=== PATIENT | male | born 1965 | race African-American/Black ===

== ENCOUNTER 2018-07-21 13:06 | Inpatient (IN) | payer MEDICAID ==
[~2018-07-21] VITALS: Ht 167.6 cm; Wt 79.8 kg
[~2018-07-21 13:06] MED LIST: HYDR-4009 PO; OXYC30TA89 PO
[2018-07-21] MEDS ORDERED: SODIUM CHLORIDE 0.9% 1,000 ML IV ONE (14:06)
[2018-07-21] MEDS ORDERED: NITROGLYCERIN OINT 1GM/INCH UDPKT TD ONE (14:15)
[2018-07-21 14:56] LABS: BASOPHILS % 0.1 % (0.0-2.0); HEMATOCRIT. 26.7 % (42.0-52.0); HEMOGLOBIN. 8.4 g/dL (14.0-18.0); LYMPHOCYTES % 11.8 % (20.0-50.0); MEAN CORPUSCULAR HEMOGLOBIN 25.5 pg (28.0-32.0); MEAN CORPUSCULAR VOLUME 80.6 fL (80.0-94.0); MEAN PLATELET VOLUME 7.2 fl (7.4-10.4); NEUTROPHILS % 83.1 % (40.0-76.0); PLATELET 560 x1000/uL (130-400); RED BLOOD CELL COUNT 3.32 mill/uL (4.7-6.1); RED CELL DISTRIBUTION WIDTH 19.6 % (11.6-14.6)
[2018-07-21 15:02] LABS: CHLORIDE 101 mEq/L (98-107)
[2018-07-21] MEDS ORDERED: KETOROLAC 30MG/ML VIAL IV ONE (15:30)
[2018-07-21] MEDS ORDERED: CLINDAMYCIN 600 MG in DEXTROSE 5% WATER 50 ML IV ONE (16:15)
[2018-07-21 21:00] VITALS: BP 93/50
[2018-07-21 21:27] VITALS: BP 93/50
[2018-07-21] MEDS ORDERED: IPRATROPIUM/ALBUTEROL 0.5-3(2.5)MG/3ML NEB HHN PRN (22:45)
[2018-07-22] VITALS: BP 94/51
[2018-07-22] MEDS: PIPERACILLIN/TAZ 3.375G PREMIX 50 ML IV SCH ×5 (01:58→23:52)
[2018-07-22] MEDS: VANCOMYCIN 1 G PREMIX 200 ML IV SCH ×3 (01:59→16:58)
[2018-07-22 02:36] LABS: CLARITY URINE CLOUDY (CLEAR); COLOR URINE YELLOW (YELLOW); KETONES URINE NEGATIVE (NEGATIVE); LEUKOCYTE ESTERASE URINE 3+ (NEGATIVE); NITRITE URINE NEGATIVE (NEGATIVE); OCCULT BLOOD URINE NEGATIVE (NEGATIVE); PH URINE 7.5 (4.5-8.0); PROTEIN URINE 1+ (NEGATIVE); SPECIFIC GRAVITY URINE 1.012 (1.005-1.030); UROBILINOGEN URINE 0.2 E.U./dL (0.2-1.0)
[2018-07-22 04:00] VITALS: BP 133/65
[2018-07-22] MEDS: OMEPRAZOLE 20MG CAPSULE EXTENDED RELEASE PO SCH (05:52)
[2018-07-22 06:38] LABS: BASOPHILS % 0.1 % (0.0-2.0); EOSINOPHILS % 0.1 % (0.0-5.0); HEMATOCRIT. 24.2 % (42.0-52.0); HEMOGLOBIN. 7.6 g/dL (14.0-18.0); LYMPHOCYTES % 13.3 % (20.0-50.0); MEAN CORPUSCULAR HEMOGLOBIN 25.3 pg (28.0-32.0); MEAN CORPUSCULAR VOLUME 80.1 fL (80.0-94.0); MEAN PLATELET VOLUME 7.2 fl (7.4-10.4); MONOCYTES % 4.1 % (2.0-8.0); NEUTROPHILS % 82.4 % (40.0-76.0); PLATELET 476 x1000/uL (130-400); RED BLOOD CELL COUNT 3.02 mill/uL (4.7-6.1); RED CELL DISTRIBUTION WIDTH 19.5 % (11.6-14.6)
[2018-07-22 07:04] LABS: CHLORIDE 100 mEq/L (98-107)
[2018-07-22 08:00] VITALS: BP 128/61
[2018-07-22] MEDS ORDERED: POTASSIUM CHLORIDE 20MEQ/PACKET PO NR (08:15)
[2018-07-22] MEDS: HYDROCODONE/ACETAMINOPHEN 10/325MG TABLET PO PRN ×2 (09:15→21:14)
[2018-07-22] MEDS ORDERED: LIDOCAINE HCL/EPINEPHRINE 1%-EPI 1:100,000 20 ML VIAL INFIL NR (09:44)
[2018-07-22 11:37] LABS: *BARBITURATES SCREEN URINE NEGATIVE (NEGATIVE); *BENZODIAZEPINES SCREEN URINE NEGATIVE (NEGATIVE); *COCAINE SCREEN URINE NEGATIVE (NEGATIVE); METHADONE URINE SCREEN NEGATIVE (NEGATIVE); OPIATES URINE SCREEN NEGATIVE (NEGATIVE)
[2018-07-22 11:38] LABS: PHENCYCLIDINE URINE SCREEN PRESUMTIVE POSITIVE (NEGATIVE)
[2018-07-22 11:39] LABS: *AMPHETAMINES SCREEN URINE NEGATIVE (NEGATIVE); CANNABINOID URINE SCREEN NEGATIVE (NEGATIVE)
[2018-07-22] MEDS: SODIUM HYPOCHLORITE 0.125% 473ML SOLUTION TOP SCH ×3 (12:30→19:35)
[2018-07-22] MEDS ORDERED: LIDOCAINE HCL 1% 20ML VIAL (Pyxis) INJ ONE (13:00)
[2018-07-22] MEDS ORDERED: IPRATROPIUM/ALBUTEROL 0.5-3(2.5)MG/3ML NEB HHN PRN (14:00)
[2018-07-22 15:06] LABS: TOTAL IRON BINDING CAPACITY 85 ug/dL (250-450)
[2018-07-22] MEDS: NICOTINE 7MG PATCH TD SCH (15:37)
[2018-07-22 16:00] VITALS: BP 120/60
[2018-07-22 20:00] VITALS: BP 122/47
[2018-07-22 21:59] LABS: FOLIC ACID (FOLATE) SERUM 19.8 ng/mL (>5.38)
[2018-07-22 23:58] VITALS: BP 94/43
[2018-07-23] VITALS (10 sets, daily range): BP systolic 91–141; BP diastolic 42–59
[2018-07-23] MEDS: VANCOMYCIN 1 G PREMIX 200 ML IV SCH ×2 (03:08→14:21)
[2018-07-23] MEDS: PIPERACILLIN/TAZ 3.375G PREMIX 50 ML IV SCH ×2 (06:21→12:17)
[2018-07-23] MEDS: OMEPRAZOLE 20MG CAPSULE EXTENDED RELEASE PO SCH (06:21)
[2018-07-23] MEDS: SODIUM HYPOCHLORITE 0.125% 473ML SOLUTION TOP SCH ×3 (08:52→19:35)
[2018-07-23] MEDS: NICOTINE 7MG PATCH TD SCH (08:52)
[2018-07-23 12:11] LABS: BASOPHILS % 0.5 % (0.0-2.0); EOSINOPHILS % 0.1 % (0.0-5.0); MEAN CORPUSCULAR HEMOGLOBIN 25.7 pg (28.0-32.0); MEAN CORPUSCULAR VOLUME 81.1 fL (80.0-94.0); MEAN PLATELET VOLUME 7.5 fl (7.4-10.4); MONOCYTES % 4.4 % (2.0-8.0); PLATELET 411 x1000/uL (130-400); RED BLOOD CELL COUNT 2.55 mill/uL (4.7-6.1)
[2018-07-23 12:18] LABS: CHLORIDE 104 mEq/L (98-107)
[2018-07-23 12:24] LABS: PHOSPHORUS 2.5 mg/dL (2.5-4.9)
[2018-07-23 12:34] LABS: HEMATOCRIT. 20.7 % (42.0-52.0); HEMOGLOBIN. 6.6 g/dL (14.0-18.0)
[2018-07-23] MEDS: HYDROCODONE/ACETAMINOPHEN 10/325MG TABLET PO PRN ×2 (14:32→21:01)
[2018-07-23] MEDS: ZINC SULFATE 220 MG ( 50 ) CAPSULE PO SCH (15:26)
[2018-07-23] MEDS: MULTIVITAMINS,THER W-MINERALS TABLET PO SCH (15:26)
[2018-07-23] MEDS ORDERED: POTASSIUM CHLORIDE 20MEQ TABLET SR PO NR (16:30)
[2018-07-23] MEDS: ASCORBIC ACID 250 MG TABLET PO SCH (21:34)
[2018-07-23] MEDS: MEROPENEM 1,000 MG in SODIUM CHLORIDE 0.9% 100 ML IV SCH (23:45)
[2018-07-24] VITALS (12 sets, daily range): BP systolic 97–122; BP diastolic 44–66
[2018-07-24] MEDS: VANCOMYCIN 1 G PREMIX 200 ML IV SCH ×3 (01:12→16:01)
[2018-07-24 03:43] LABS: HEMATOCRIT 25.1 % (42.0-52.0); HEMOGLOBIN 8.3 g/dL (14.0-18.0)
[2018-07-24 04:01] LABS: INR 1.1; PROTHROMBIN TIME 10.8 sec (9.1-11.1)
[2018-07-24] MEDS: MEROPENEM 1,000 MG in SODIUM CHLORIDE 0.9% 100 ML IV SCH ×3 (05:43→21:29)
[2018-07-24 06:16] LABS: BASOPHILS % 0.3 % (0.0-2.0); EOSINOPHILS % 0.5 % (0.0-5.0); HEMATOCRIT. 25.2 % (42.0-52.0); HEMOGLOBIN. 8.2 g/dL (14.0-18.0); LYMPHOCYTES % 21.1 % (20.0-50.0); MEAN CORPUSCULAR HEMOGLOBIN 26.3 pg (28.0-32.0); MEAN CORPUSCULAR VOLUME 80.9 fL (80.0-94.0); MEAN PLATELET VOLUME 7.6 fl (7.4-10.4); MONOCYTES % 3.8 % (2.0-8.0); NEUTROPHILS % 74.3 % (40.0-76.0); PLATELET 466 x1000/uL (130-400); RED BLOOD CELL COUNT 3.11 mill/uL (4.7-6.1); RED CELL DISTRIBUTION WIDTH 18.1 % (11.6-14.6)
[2018-07-24 06:17] LABS: CHLORIDE 106 mEq/L (98-107)
[2018-07-24 06:25] LABS: VANCOMYCIN TROUGH 39.7 ug/mL (5.0-10.0)
[2018-07-24] MEDS: OMEPRAZOLE 20MG CAPSULE EXTENDED RELEASE PO SCH (06:42)
[2018-07-24 07:30] LABS: C REACTIVE PROTEIN QUANT > 190.0 mg/L (0.0-3.0)
[2018-07-24] MEDS: SODIUM HYPOCHLORITE 0.125% 473ML SOLUTION TOP SCH ×3 (09:00→17:51)
[2018-07-24] MEDS: ZINC SULFATE 220 MG ( 50 ) CAPSULE PO SCH (09:14)
[2018-07-24] MEDS: MULTIVITAMINS,THER W-MINERALS TABLET PO SCH (09:14)
[2018-07-24] MEDS: ASCORBIC ACID 250 MG TABLET PO SCH ×2 (09:14→20:41)
[2018-07-24] MEDS: NICOTINE 7MG PATCH TD SCH (09:15)
[2018-07-24] MEDS: HYDROCODONE/ACETAMINOPHEN 10/325MG TABLET PO PRN ×2 (09:17→17:48)
[2018-07-24] MEDS ORDERED: SODIUM BICARBONATE 4% (2.4MEQ) 5ML VIAL IV ONE (13:32)
[2018-07-24] MEDS ORDERED: LIDOCAINE HCL 1% 20ML VIAL (Pyxis) INJ ONE (13:32)
[2018-07-24] MEDS ORDERED: IOHEXOL-300 50 ML BOTTLE IV ONE (13:32)
[2018-07-24] MEDS ORDERED: IOHEXOL-300 100 ML BOTTLE ONE (13:33)
[2018-07-24] MEDS: METOPROLOL TARTRATE 25MG TABLET PO SCH ×2 (15:15→20:42)
[2018-07-24 22:22] LABS: HEMATOCRIT 22.6 % (42.0-52.0); HEMOGLOBIN 7.3 g/dL (14.0-18.0)
[2018-07-25] VITALS: BP 118/50
[2018-07-25 04:00] VITALS: BP 106/72
[2018-07-25] MEDS: VANCOMYCIN 1250MG in DEXTROSE 5% WATER 250ML IV SCH ×2 (05:25→05:26)
[2018-07-25 06:37] LABS: BASOPHILS % 0.2 % (0.0-2.0); EOSINOPHILS % 0.7 % (0.0-5.0); HEMATOCRIT. 24.1 % (42.0-52.0); HEMOGLOBIN. 7.8 g/dL (14.0-18.0); LYMPHOCYTES % 13.9 % (20.0-50.0); MEAN CORPUSCULAR HEMOGLOBIN 26.2 pg (28.0-32.0); MEAN CORPUSCULAR VOLUME 80.8 fL (80.0-94.0); MEAN PLATELET VOLUME 7.3 fl (7.4-10.4); MONOCYTES % 3.5 % (2.0-8.0); NEUTROPHILS % 81.7 % (40.0-76.0); PLATELET 483 x1000/uL (130-400); RED BLOOD CELL COUNT 2.99 mill/uL (4.7-6.1); RED CELL DISTRIBUTION WIDTH 18.8 % (11.6-14.6)
[2018-07-25] MEDS: OMEPRAZOLE 20MG CAPSULE EXTENDED RELEASE PO SCH (06:46)
[2018-07-25 06:47] LABS: CHLORIDE 102 mEq/L (98-107)
[2018-07-25] MEDS: MEROPENEM 1,000 MG in SODIUM CHLORIDE 0.9% 100 ML IV SCH (06:59)
[2018-07-25 08:00] VITALS: BP 107/61
[2018-07-25] MEDS: METOPROLOL TARTRATE 25MG TABLET PO SCH ×2 (08:35→21:00)
[2018-07-25] MEDS: MULTIVITAMINS,THER W-MINERALS TABLET PO SCH (08:36)
[2018-07-25] MEDS: ZINC SULFATE 220 MG ( 50 ) CAPSULE PO SCH (08:36)
[2018-07-25] MEDS: SODIUM HYPOCHLORITE 0.125% 473ML SOLUTION TOP SCH ×3 (08:36→15:19)
[2018-07-25] MEDS: ASCORBIC ACID 250 MG TABLET PO SCH ×2 (08:36→21:26)
[2018-07-25] MEDS: NICOTINE 7MG PATCH TD SCH (08:40)
[2018-07-25 12:00] VITALS: BP 127/66
[2018-07-25] MEDS ORDERED: MAGNESIUM 2 G PREMIX 50 ML IV ONE (12:45)
[2018-07-25] MEDS ORDERED: MAGNESIUM SULFATE 2 GM in DEXTROSE 5% WATER 46 ML IV SCH (13:30)
[2018-07-25] MEDS: CEFTRIAXONE 2 G in DEXTROSE 5% WATER 50 ML IV SCH (15:43)
[2018-07-25] MEDS: METRONIDAZOLE 500MG TABLET PO SCH ×2 (15:43→21:26)
[2018-07-25] MEDS: HYDROCODONE/ACETAMINOPHEN 10/325MG TABLET PO PRN (15:49)
[2018-07-25 16:00] VITALS: BP 106/60
[2018-07-25 20:00] VITALS: BP 95/57
[2018-07-26] VITALS: BP 130/52
[2018-07-26 04:00] VITALS: BP 104/50
[2018-07-26] MEDS: HYDROCODONE/ACETAMINOPHEN 10/325MG TABLET PO PRN (04:59)
[2018-07-26 07:10] LABS: BASOPHILS % 0.4 % (0.0-2.0); EOSINOPHILS % 1.3 % (0.0-5.0); HEMATOCRIT. 23.6 % (42.0-52.0); HEMOGLOBIN. 7.7 g/dL (14.0-18.0); LYMPHOCYTES % 18.2 % (20.0-50.0); MEAN CORPUSCULAR HEMOGLOBIN 26.7 pg (28.0-32.0); MEAN CORPUSCULAR VOLUME 82.1 fL (80.0-94.0); MEAN PLATELET VOLUME 7.4 fl (7.4-10.4); MONOCYTES % 4.6 % (2.0-8.0); NEUTROPHILS % 75.5 % (40.0-76.0); PLATELET 495 x1000/uL (130-400); RED BLOOD CELL COUNT 2.87 mill/uL (4.7-6.1); RED CELL DISTRIBUTION WIDTH 18.7 % (11.6-14.6)
[2018-07-26 07:41] LABS: CHLORIDE 105 mEq/L (98-107)
[2018-07-26 08:00] VITALS: BP 110/48
[2018-07-26] MEDS: NICOTINE 7MG PATCH TD SCH ×2 (09:00→09:29)
[2018-07-26] MEDS: METOPROLOL TARTRATE 25MG TABLET PO SCH ×2 (09:21→21:39)
[2018-07-26] MEDS: METRONIDAZOLE 500MG TABLET PO SCH ×2 (09:21→21:39)
[2018-07-26] MEDS: ZINC SULFATE 220 MG ( 50 ) CAPSULE PO SCH (09:22)
[2018-07-26] MEDS: ASCORBIC ACID 250 MG TABLET PO SCH ×2 (09:22→21:40)
[2018-07-26] MEDS: CEFTRIAXONE 2 G in DEXTROSE 5% WATER 50 ML IV SCH (09:26)
[2018-07-26] MEDS: MULTIVITAMINS,THER W-MINERALS TABLET PO SCH (09:26)
[2018-07-26] MEDS: FAMOTIDINE 20MG TABLET PO SCH ×2 (09:26→17:36)
[2018-07-26 12:00] VITALS: BP 132/60
[2018-07-26 16:00] VITALS: BP 152/67
[2018-07-26] MEDS: SODIUM HYPOCHLORITE 0.125% 473ML SOLUTION TOP SCH (17:37)
[2018-07-26 20:00] VITALS: BP 133/62
[2018-07-27] VITALS: BP 167/80
[2018-07-27 04:00] VITALS: BP 146/61
[2018-07-27 06:20] LABS: BASOPHILS % 0.4 % (0.0-2.0); EOSINOPHILS % 0.8 % (0.0-5.0); HEMATOCRIT. 24.2 % (42.0-52.0); HEMOGLOBIN. 7.6 g/dL (14.0-18.0); LYMPHOCYTES % 21.5 % (20.0-50.0); MEAN CORPUSCULAR HEMOGLOBIN 25.9 pg (28.0-32.0); MEAN CORPUSCULAR VOLUME 82.2 fL (80.0-94.0); MEAN PLATELET VOLUME 7.7 fl (7.4-10.4); MONOCYTES % 5.6 % (2.0-8.0); NEUTROPHILS % 71.7 % (40.0-76.0); PLATELET 554 x1000/uL (130-400); RED BLOOD CELL COUNT 2.94 mill/uL (4.7-6.1)
[2018-07-27 07:18] LABS: CHLORIDE 104 mEq/L (98-107)
[2018-07-27 08:00] VITALS: BP 117/61
[2018-07-27] MEDS: MULTIVITAMINS,THER W-MINERALS TABLET PO SCH (09:00)
[2018-07-27] MEDS: ASCORBIC ACID 250 MG TABLET PO SCH ×2 (09:00→20:53)
[2018-07-27] MEDS: NICOTINE 7MG PATCH TD SCH (09:00)
[2018-07-27] MEDS: CEFTRIAXONE 2 G in DEXTROSE 5% WATER 50 ML IV SCH (09:00)
[2018-07-27] MEDS: ZINC SULFATE 220 MG ( 50 ) CAPSULE PO SCH (09:00)
[2018-07-27] MEDS: FAMOTIDINE 20MG TABLET PO SCH ×2 (09:00→17:49)
[2018-07-27] MEDS: METRONIDAZOLE 500MG TABLET PO SCH ×2 (09:00→20:52)
[2018-07-27] MEDS: METOPROLOL TARTRATE 25MG TABLET PO SCH ×2 (09:02→20:53)
[2018-07-27 12:00] VITALS: BP 111/56
[2018-07-27 16:00] VITALS: BP 128/52
[2018-07-27 20:00] VITALS: BP 115/66
[2018-07-28] VITALS: BP 126/48
[2018-07-28 04:00] VITALS: BP 148/71
[2018-07-28 08:00] VITALS: BP 126/58
[2018-07-28] MEDS: SODIUM HYPOCHLORITE 0.125% 473ML SOLUTION TOP SCH ×2 (09:00→16:07)
[2018-07-28] MEDS: NICOTINE 7MG PATCH TD SCH ×2 (09:00→10:05)
[2018-07-28] MEDS: MULTIVITAMINS,THER W-MINERALS TABLET PO SCH (10:05)
[2018-07-28] MEDS: ZINC SULFATE 220 MG ( 50 ) CAPSULE PO SCH (10:05)
[2018-07-28] MEDS: METRONIDAZOLE 500MG TABLET PO SCH ×2 (10:05→20:49)
[2018-07-28] MEDS: CEFTRIAXONE 2 G in DEXTROSE 5% WATER 50 ML IV SCH (10:05)
[2018-07-28] MEDS: ASCORBIC ACID 250 MG TABLET PO SCH ×2 (10:05→20:49)
[2018-07-28] MEDS: FAMOTIDINE 20MG TABLET PO SCH ×2 (10:05→18:15)
[2018-07-28] MEDS: METOPROLOL TARTRATE 25MG TABLET PO SCH ×2 (11:25→20:49)
[2018-07-28 12:00] VITALS: BP 110/50
[2018-07-28 16:00] VITALS: BP 118/57
[2018-07-28 20:00] VITALS: BP 110/53
[2018-07-28] MEDS: ACETAMINOPHEN 650MG/20.3ML UDC PO PRN (20:50)
[2018-07-29] VITALS (8 sets, daily range): BP systolic 97–121; BP diastolic 46–62
[2018-07-29 07:01] LABS: BASOPHILS % 0.5 % (0.0-2.0); EOSINOPHILS % 0.9 % (0.0-5.0); HEMATOCRIT. 22.7 % (42.0-52.0); HEMOGLOBIN. 7.2 g/dL (14.0-18.0); LYMPHOCYTES % 16.8 % (20.0-50.0); MEAN CORPUSCULAR HEMOGLOBIN 26.1 pg (28.0-32.0); MEAN CORPUSCULAR VOLUME 81.7 fL (80.0-94.0); MEAN PLATELET VOLUME 7.5 fl (7.4-10.4); MONOCYTES % 5.4 % (2.0-8.0); NEUTROPHILS % 76.4 % (40.0-76.0); PLATELET 566 x1000/uL (130-400); RED BLOOD CELL COUNT 2.78 mill/uL (4.7-6.1); RED CELL DISTRIBUTION WIDTH 19.2 % (11.6-14.6)
[2018-07-29] MEDS: METOPROLOL TARTRATE 25MG TABLET PO SCH ×2 (09:00→21:00)
[2018-07-29 09:08] LABS: CHLORIDE 106 mEq/L (98-107)
[2018-07-29] MEDS: FAMOTIDINE 20MG TABLET PO SCH ×2 (09:41→17:13)
[2018-07-29] MEDS: ZINC SULFATE 220 MG ( 50 ) CAPSULE PO SCH (09:41)
[2018-07-29] MEDS: ASCORBIC ACID 250 MG TABLET PO SCH ×2 (09:41→21:15)
[2018-07-29] MEDS: CEFTRIAXONE 2 G in DEXTROSE 5% WATER 50 ML IV SCH (09:41)
[2018-07-29] MEDS: MULTIVITAMINS,THER W-MINERALS TABLET PO SCH (09:41)
[2018-07-29] MEDS: METRONIDAZOLE 500MG TABLET PO SCH ×2 (09:41→21:15)
[2018-07-29] MEDS: NICOTINE 7MG PATCH TD SCH (09:42)
[2018-07-29] MEDS: SODIUM HYPOCHLORITE 0.125% 473ML SOLUTION TOP SCH (09:43)
[2018-07-29 23:33] LABS: HEMATOCRIT 26.8 % (42.0-52.0); HEMOGLOBIN 8.6 g/dL (14.0-18.0)
[2018-07-29 23:59] LABS: INR 1.2
[2018-07-30] VITALS: BP 153/73
[2018-07-30] MEDS: ACETAMINOPHEN 650MG/20.3ML UDC PO PRN ×3 (00:11→21:03)
[2018-07-30 04:00] VITALS: BP 112/52
[2018-07-30 06:48] LABS: HEMATOCRIT. 23.7 % (42.0-52.0); HEMOGLOBIN. 7.7 g/dL (14.0-18.0); MEAN CORPUSCULAR HEMOGLOBIN 26.8 pg (28.0-32.0); MEAN CORPUSCULAR VOLUME 82.6 fL (80.0-94.0); PLATELET 538 x1000/uL (130-400); RED BLOOD CELL COUNT 2.86 mill/uL (4.7-6.1); RED CELL DISTRIBUTION WIDTH 18.5 % (11.6-14.6)
[2018-07-30 08:00] VITALS: BP 94/38
[2018-07-30] MEDS: METOPROLOL TARTRATE 25MG TABLET PO SCH ×2 (09:00→20:43)
[2018-07-30] MEDS: NICOTINE 7MG PATCH TD SCH (09:00)
[2018-07-30] MEDS: ZINC SULFATE 220 MG ( 50 ) CAPSULE PO SCH (09:15)
[2018-07-30] MEDS: ASCORBIC ACID 250 MG TABLET PO SCH ×2 (09:15→20:42)
[2018-07-30] MEDS: FAMOTIDINE 20MG TABLET PO SCH ×2 (09:16→16:41)
[2018-07-30] MEDS: MULTIVITAMINS,THER W-MINERALS TABLET PO SCH (09:16)
[2018-07-30] MEDS: SODIUM HYPOCHLORITE 0.125% 473ML SOLUTION TOP SCH (09:17)
[2018-07-30] MEDS: CEFTRIAXONE 2 G in DEXTROSE 5% WATER 50 ML IV SCH (09:18)
[2018-07-30] MEDS: METRONIDAZOLE 500MG TABLET PO SCH ×2 (09:31→20:43)
[2018-07-30 09:53] LABS: CHLORIDE 106 mEq/L (98-107)
[2018-07-30 12:00] VITALS: BP 104/68
[2018-07-30 14:05] LABS: PLATELET ESTIMATE INCREASED
[2018-07-30] MEDS ORDERED: SODIUM CHLORIDE 0.9% 250 ML IV ONE (14:30)
[2018-07-30] MEDS ORDERED: MAGNESIUM 2 G PREMIX 50 ML IV ONE (14:30)
[2018-07-30 16:00] VITALS: BP 95/43
[2018-07-30] MEDS ORDERED: MAGNESIUM SULFATE 2 GM in DEXTROSE 5% WATER 50 ML IV NR (16:00)
[2018-07-30 20:00] VITALS: BP 93/44
[2018-07-31] VITALS: BP 113/63
[2018-07-31 04:00] VITALS: BP 116/70
[2018-07-31 07:00] LABS: BASOPHILS % 0.3 % (0.0-2.0); EOSINOPHILS % 0.9 % (0.0-5.0); HEMATOCRIT. 28.1 % (42.0-52.0); HEMOGLOBIN. 9.1 g/dL (14.0-18.0); LYMPHOCYTES % 19.8 % (20.0-50.0); MEAN CORPUSCULAR VOLUME 83.3 fL (80.0-94.0); MEAN PLATELET VOLUME 7.7 fl (7.4-10.4); MONOCYTES % 7.2 % (2.0-8.0); NEUTROPHILS % 71.8 % (40.0-76.0); PLATELET 705 x1000/uL (130-400); RED BLOOD CELL COUNT 3.38 mill/uL (4.7-6.1); RED CELL DISTRIBUTION WIDTH 19.2 % (11.6-14.6)
[2018-07-31 07:59] LABS: CHLORIDE 104 mEq/L (98-107)
[2018-07-31 08:00] VITALS: BP 110/39
[2018-07-31] MEDS: NICOTINE 7MG PATCH TD SCH (09:00)
[2018-07-31] MEDS: FAMOTIDINE 20MG TABLET PO SCH ×2 (09:16→17:06)
[2018-07-31] MEDS: ZINC SULFATE 220 MG ( 50 ) CAPSULE PO SCH (09:16)
[2018-07-31] MEDS: METRONIDAZOLE 500MG TABLET PO SCH ×2 (09:16→22:02)
[2018-07-31] MEDS: CEFTRIAXONE 2 G in DEXTROSE 5% WATER 50 ML IV SCH (09:16)
[2018-07-31] MEDS: ASCORBIC ACID 250 MG TABLET PO SCH ×2 (09:16→22:02)
[2018-07-31] MEDS: MULTIVITAMINS,THER W-MINERALS TABLET PO SCH (09:16)
[2018-07-31] MEDS: METOPROLOL TARTRATE 25MG TABLET PO SCH ×2 (09:16→22:03)
[2018-07-31] MEDS: SODIUM HYPOCHLORITE 0.125% 473ML SOLUTION TOP SCH (09:17)
[2018-07-31 12:00] VITALS: BP 114/58
[2018-07-31 16:00] VITALS: BP 140/53
[2018-07-31 20:00] VITALS: BP 123/71
[2018-08-01 04:00] VITALS: BP 106/59
[2018-08-01 06:10] LABS: BASOPHILS % 0.7 % (0.0-2.0); EOSINOPHILS % 0.8 % (0.0-5.0); HEMATOCRIT. 24.3 % (42.0-52.0); HEMOGLOBIN. 7.7 g/dL (14.0-18.0); MEAN CORPUSCULAR HEMOGLOBIN 26.5 pg (28.0-32.0); MONOCYTES % 5.4 % (2.0-8.0); NEUTROPHILS % 71.1 % (40.0-76.0); PLATELET 708 x1000/uL (130-400); RED BLOOD CELL COUNT 2.92 mill/uL (4.7-6.1)
[2018-08-01 06:50] LABS: CHLORIDE 104 mEq/L (98-107)
[2018-08-01 08:00] VITALS: BP_SYST 114; BP_SYST 122; BP_DIAS 53; BP_DIAS 78
[2018-08-01] MEDS: NICOTINE 7MG PATCH TD SCH (09:00)
[2018-08-01] MEDS ORDERED: CEFTRIAXONE 2 G in DEXTROSE 5% WATER 50 ML IV SCH (09:00)
[2018-08-01] MEDS: SODIUM HYPOCHLORITE 0.125% 473ML SOLUTION TOP SCH (09:00)
[2018-08-01] MEDS: ASCORBIC ACID 250 MG TABLET PO SCH ×2 (09:40→21:34)
[2018-08-01] MEDS: METRONIDAZOLE 500MG TABLET PO SCH ×2 (09:41→21:34)
[2018-08-01] MEDS: FAMOTIDINE 20MG TABLET PO SCH ×2 (09:41→17:21)
[2018-08-01] MEDS: ZINC SULFATE 220 MG ( 50 ) CAPSULE PO SCH (09:41)
[2018-08-01] MEDS: MULTIVITAMINS,THER W-MINERALS TABLET PO SCH (09:42)
[2018-08-01] MEDS ORDERED: LIDOCAINE HCL 1% 20ML VIAL (Pyxis) INJ INFIL SCH (09:45)
[2018-08-01] MEDS: METOPROLOL TARTRATE 25MG TABLET PO SCH ×2 (09:46→21:00)
[2018-08-01 12:13] VITALS: BP 118/53
[2018-08-01 16:00] VITALS: BP 96/40
[2018-08-01] MEDS: ACETAMINOPHEN 650MG/20.3ML UDC PO PRN (17:21)
[2018-08-01 20:00] VITALS: BP 97/46
[2018-08-01] MEDS ORDERED: ERTA1VIA3 IJ (20:37)
[2018-08-02] VITALS (10 sets, daily range): BP systolic 94–155; BP diastolic 46–88
[2018-08-02 05:59] LABS: BASOPHILS % 0.6 % (0.0-2.0); EOSINOPHILS % 0.9 % (0.0-5.0); HEMATOCRIT. 21.9 % (42.0-52.0); HEMOGLOBIN. 7.2 g/dL (14.0-18.0); LYMPHOCYTES % 21.1 % (20.0-50.0); MEAN CORPUSCULAR HEMOGLOBIN 27.4 pg (28.0-32.0); MEAN CORPUSCULAR VOLUME 83.2 fL (80.0-94.0); MEAN PLATELET VOLUME 7.3 fl (7.4-10.4); MONOCYTES % 5.5 % (2.0-8.0); NEUTROPHILS % 71.9 % (40.0-76.0); PLATELET 783 x1000/uL (130-400); RED BLOOD CELL COUNT 2.63 mill/uL (4.7-6.1); RED CELL DISTRIBUTION WIDTH 19.4 % (11.6-14.6)
[2018-08-02 06:49] LABS: CHLORIDE 106 mEq/L (98-107)
[2018-08-02] MEDS: NICOTINE 7MG PATCH TD SCH ×2 (09:00→09:35)
[2018-08-02] MEDS: METOPROLOL TARTRATE 25MG TABLET PO SCH ×2 (09:00→21:38)
[2018-08-02] MEDS: ASCORBIC ACID 250 MG TABLET PO SCH ×2 (09:35→21:37)
[2018-08-02] MEDS: METRONIDAZOLE 500MG TABLET PO SCH ×2 (09:35→21:37)
[2018-08-02] MEDS: ZINC SULFATE 220 MG ( 50 ) CAPSULE PO SCH (09:35)
[2018-08-02] MEDS: MULTIVITAMINS,THER W-MINERALS TABLET PO SCH (09:35)
[2018-08-02] MEDS: FAMOTIDINE 20MG TABLET PO SCH ×2 (09:35→17:56)
[2018-08-02] MEDS: SODIUM HYPOCHLORITE 0.125% 473ML SOLUTION TOP SCH (09:36)
[2018-08-02] MEDS: CEFTRIAXONE 2 G in DEXTROSE 5% WATER 50 ML IV SCH (13:47)
[2018-08-02 23:42] LABS: BASOPHILS % 0.4 % (0.0-2.0); EOSINOPHILS % 1.3 % (0.0-5.0); HEMATOCRIT. 27.1 % (42.0-52.0); HEMOGLOBIN. 8.7 g/dL (14.0-18.0); LYMPHOCYTES % 27.5 % (20.0-50.0); MEAN CORPUSCULAR HEMOGLOBIN 27.2 pg (28.0-32.0); MEAN CORPUSCULAR VOLUME 84.3 fL (80.0-94.0); MEAN PLATELET VOLUME 6.7 fl (7.4-10.4); MONOCYTES % 6.5 % (2.0-8.0); NEUTROPHILS % 64.3 % (40.0-76.0); PLATELET 837 x1000/uL (130-400); RED BLOOD CELL COUNT 3.21 mill/uL (4.7-6.1); RED CELL DISTRIBUTION WIDTH 19.4 % (11.6-14.6)
[2018-08-03] VITALS: BP 102/50
[2018-08-03 04:00] VITALS: BP 110/56
[2018-08-03 07:24] LABS: BASOPHILS % 0.6 % (0.0-2.0); EOSINOPHILS % 0.6 % (0.0-5.0); HEMATOCRIT. 25.2 % (42.0-52.0); HEMOGLOBIN. 8.4 g/dL (14.0-18.0); MEAN CORPUSCULAR HEMOGLOBIN 28.1 pg (28.0-32.0); MEAN CORPUSCULAR VOLUME 84.6 fL (80.0-94.0); MEAN PLATELET VOLUME 7.3 fl (7.4-10.4); MONOCYTES % 6.5 % (2.0-8.0); NEUTROPHILS % 71.3 % (40.0-76.0); PLATELET 849 x1000/uL (130-400); RED BLOOD CELL COUNT 2.98 mill/uL (4.7-6.1); RED CELL DISTRIBUTION WIDTH 19.5 % (11.6-14.6)
[2018-08-03 08:00] VITALS: BP 116/57
[2018-08-03 08:02] LABS: CHLORIDE 104 mEq/L (98-107)
[2018-08-03] MEDS: NICOTINE 7MG PATCH TD SCH (09:00)
[2018-08-03] MEDS: ASCORBIC ACID 250 MG TABLET PO SCH ×2 (09:51→21:52)
[2018-08-03] MEDS: METRONIDAZOLE 500MG TABLET PO SCH ×2 (09:51→21:52)
[2018-08-03] MEDS: MULTIVITAMINS,THER W-MINERALS TABLET PO SCH (09:51)
[2018-08-03] MEDS: FAMOTIDINE 20MG TABLET PO SCH ×2 (09:51→17:05)
[2018-08-03] MEDS: ZINC SULFATE 220 MG ( 50 ) CAPSULE PO SCH (09:51)
[2018-08-03] MEDS: METOPROLOL TARTRATE 25MG TABLET PO SCH ×2 (09:52→21:53)
[2018-08-03] MEDS: SODIUM HYPOCHLORITE 0.125% 473ML SOLUTION TOP SCH (09:54)
[2018-08-03 12:00] VITALS: BP 99/52
[2018-08-03] MEDS: CEFTRIAXONE 2 G in DEXTROSE 5% WATER 50 ML IV SCH (12:32)
[2018-08-03 16:00] VITALS: BP 108/54
[2018-08-03 20:00] VITALS: BP 121/55
[2018-08-04] VITALS (7 sets, daily range): BP systolic 96–119; BP diastolic 51–58
[2018-08-04] MEDS: METOPROLOL TARTRATE 25MG TABLET PO SCH ×2 (09:00→21:05)
[2018-08-04] MEDS: NICOTINE 7MG PATCH TD SCH (09:00)
[2018-08-04] MEDS: FAMOTIDINE 20MG TABLET PO SCH ×2 (09:59→16:50)
[2018-08-04] MEDS: ASCORBIC ACID 250 MG TABLET PO SCH ×2 (09:59→21:05)
[2018-08-04] MEDS: METRONIDAZOLE 500MG TABLET PO SCH ×2 (09:59→21:05)
[2018-08-04] MEDS: ZINC SULFATE 220 MG ( 50 ) CAPSULE PO SCH (09:59)
[2018-08-04] MEDS: MULTIVITAMINS,THER W-MINERALS TABLET PO SCH (09:59)
[2018-08-04] MEDS: SODIUM HYPOCHLORITE 0.125% 473ML SOLUTION TOP SCH (10:01)
[2018-08-04] MEDS: CEFTRIAXONE 2 G in DEXTROSE 5% WATER 50 ML IV SCH (12:46)
[2018-08-04 22:03] LABS: CHLORIDE 106 mEq/L (98-107)
[2018-08-04 22:07] LABS: BASOPHILS % 0.4 % (0.0-2.0); EOSINOPHILS % 1.2 % (0.0-5.0); HEMATOCRIT. 26.5 % (42.0-52.0); HEMOGLOBIN. 8.8 g/dL (14.0-18.0); LYMPHOCYTES % 25.7 % (20.0-50.0); MEAN CORPUSCULAR HEMOGLOBIN 28.2 pg (28.0-32.0); MEAN CORPUSCULAR VOLUME 84.8 fL (80.0-94.0); MONOCYTES % 6.3 % (2.0-8.0); NEUTROPHILS % 66.4 % (40.0-76.0); RED BLOOD CELL COUNT 3.12 mill/uL (4.7-6.1); RED CELL DISTRIBUTION WIDTH 19.5 % (11.6-14.6)
[2018-08-04 22:13] LABS: PLATELET 1029 x1000/uL (130-400)
[2018-08-05 04:00] VITALS: BP 118/68
[2018-08-05 06:33] LABS: BASOPHILS % 0.6 % (0.0-2.0); EOSINOPHILS % 0.7 % (0.0-5.0); HEMATOCRIT. 28.5 % (42.0-52.0); HEMOGLOBIN. 9.4 g/dL (14.0-18.0); LYMPHOCYTES % 20.1 % (20.0-50.0); MEAN CORPUSCULAR HEMOGLOBIN 28.3 pg (28.0-32.0); MEAN CORPUSCULAR VOLUME 85.5 fL (80.0-94.0); MEAN PLATELET VOLUME 7.3 fl (7.4-10.4); MONOCYTES % 7.6 % (2.0-8.0); RED BLOOD CELL COUNT 3.34 mill/uL (4.7-6.1); RED CELL DISTRIBUTION WIDTH 19.8 % (11.6-14.6)
[2018-08-05 06:56] LABS: PLATELET 1040 x1000/uL (130-400)
[2018-08-05 07:13] LABS: CHLORIDE 104 mEq/L (98-107)
[2018-08-05 08:00] VITALS: BP 107/53
[2018-08-05] MEDS: NICOTINE 7MG PATCH TD SCH (10:27)
[2018-08-05] MEDS: METRONIDAZOLE 500MG TABLET PO SCH ×2 (10:27→21:08)
[2018-08-05] MEDS: ZINC SULFATE 220 MG ( 50 ) CAPSULE PO SCH (10:28)
[2018-08-05] MEDS: ASCORBIC ACID 250 MG TABLET PO SCH ×2 (10:28→21:08)
[2018-08-05] MEDS: FAMOTIDINE 20MG TABLET PO SCH ×2 (10:28→17:12)
[2018-08-05] MEDS: METOPROLOL TARTRATE 25MG TABLET PO SCH ×2 (10:28→21:00)
[2018-08-05] MEDS: MULTIVITAMINS,THER W-MINERALS TABLET PO SCH (10:28)
[2018-08-05 12:00] VITALS: BP 107/53
[2018-08-05] MEDS: CEFTRIAXONE 2 G in DEXTROSE 5% WATER 50 ML IV SCH (14:43)
[2018-08-05 16:00] VITALS: BP 116/55
[2018-08-05 20:00] VITALS: BP 102/46
[2018-08-06] VITALS: BP 124/68
[2018-08-06 04:00] VITALS: BP 111/58
[2018-08-06] MEDS: ACETAMINOPHEN 650MG/20.3ML UDC PO PRN ×2 (04:32→20:13)
[2018-08-06 08:00] VITALS: BP 133/63
[2018-08-06] MEDS: NICOTINE 7MG PATCH TD SCH (09:00)
[2018-08-06] MEDS: MULTIVITAMINS,THER W-MINERALS TABLET PO SCH (09:11)
[2018-08-06] MEDS: METRONIDAZOLE 500MG TABLET PO SCH ×2 (09:11→20:33)
[2018-08-06] MEDS: ZINC SULFATE 220 MG ( 50 ) CAPSULE PO SCH (09:11)
[2018-08-06] MEDS: FAMOTIDINE 20MG TABLET PO SCH ×2 (09:12→17:47)
[2018-08-06] MEDS: ASCORBIC ACID 250 MG TABLET PO SCH ×2 (09:12→20:33)
[2018-08-06] MEDS: METOPROLOL TARTRATE 25MG TABLET PO SCH ×2 (09:12→20:33)
[2018-08-06 12:00] VITALS: BP 113/61
[2018-08-06] MEDS: CEFTRIAXONE 2 G in DEXTROSE 5% WATER 50 ML IV SCH (12:18)
[2018-08-06] MEDS: ASPIRIN 81MG TABLET PO SCH (12:19)
[2018-08-06 14:53] LABS: PLATELET ESTIMATE MARKEDLY INCREASED
[2018-08-06 16:00] VITALS: BP 113/62
[2018-08-06] MEDS: SODIUM HYPOCHLORITE 0.125% 473ML SOLUTION TOP SCH (17:48)
[2018-08-06 20:00] VITALS: BP 138/66
[2018-08-07 04:00] VITALS: BP 103/60
[2018-08-07 08:00] VITALS: BP 130/74
[2018-08-07] MEDS: FAMOTIDINE 20MG TABLET PO SCH ×2 (08:51→16:58)
[2018-08-07] MEDS: ZINC SULFATE 220 MG ( 50 ) CAPSULE PO SCH (08:51)
[2018-08-07] MEDS: ASPIRIN 81MG TABLET PO SCH (08:51)
[2018-08-07] MEDS: ASCORBIC ACID 250 MG TABLET PO SCH ×2 (08:51→20:36)
[2018-08-07] MEDS: MULTIVITAMINS,THER W-MINERALS TABLET PO SCH (08:51)
[2018-08-07] MEDS: NICOTINE 7MG PATCH TD SCH (08:52)
[2018-08-07] MEDS: ACETAMINOPHEN 650MG/20.3ML UDC PO PRN (08:52)
[2018-08-07] MEDS: METOPROLOL TARTRATE 25MG TABLET PO SCH ×2 (09:01→20:37)
[2018-08-07 12:00] VITALS: BP 98/66
[2018-08-07] MEDS: CEFTRIAXONE 2 G in DEXTROSE 5% WATER 50 ML IV SCH (12:42)
[2018-08-07] MEDS: METRONIDAZOLE 500MG TABLET PO SCH ×2 (12:42→20:36)
[2018-08-07 16:00] VITALS: BP 95/64
[2018-08-07] MEDS ORDERED: LACTULOSE 20G/30ML UDC PO NR (16:00)
[2018-08-07] MEDS: SODIUM HYPOCHLORITE 0.125% 473ML SOLUTION TOP SCH (17:09)
[2018-08-07 20:00] VITALS: BP 121/58
[2018-08-08] VITALS: BP 101/64
[2018-08-08 03:56] VITALS: BP 135/74
[2018-08-08 08:00] VITALS: BP 113/70
[2018-08-08] MEDS: NICOTINE 7MG PATCH TD SCH (09:00)
[2018-08-08] MEDS: METRONIDAZOLE 500MG TABLET PO SCH ×2 (09:30→21:56)
[2018-08-08] MEDS: ASPIRIN 81MG TABLET PO SCH (09:30)
[2018-08-08] MEDS: FAMOTIDINE 20MG TABLET PO SCH ×2 (09:30→17:09)
[2018-08-08] MEDS: ASCORBIC ACID 250 MG TABLET PO SCH ×2 (09:30→21:56)
[2018-08-08] MEDS: ZINC SULFATE 220 MG ( 50 ) CAPSULE PO SCH (09:30)
[2018-08-08] MEDS: MULTIVITAMINS,THER W-MINERALS TABLET PO SCH (09:30)
[2018-08-08] MEDS: METOPROLOL TARTRATE 25MG TABLET PO SCH ×2 (09:30→21:00)
[2018-08-08 12:00] VITALS: BP 105/65
[2018-08-08] MEDS: CEFTRIAXONE 2 G in DEXTROSE 5% WATER 50 ML IV SCH (12:40)
[2018-08-08 16:00] VITALS: BP 108/64
[2018-08-08] MEDS: SODIUM HYPOCHLORITE 0.125% 473ML SOLUTION TOP SCH (17:09)
[2018-08-08 22:30] VITALS: BP 116/57
[2018-08-09] VITALS: BP 113/57
[2018-08-09 04:00] VITALS: BP 116/60
[2018-08-09 06:43] LABS: BASOPHILS % 0.6 % (0.0-2.0); EOSINOPHILS % 2.1 % (0.0-5.0); HEMOGLOBIN. 7.6 g/dL (14.0-18.0); MEAN CORPUSCULAR HEMOGLOBIN 28.3 pg (28.0-32.0); MEAN CORPUSCULAR VOLUME 85.4 fL (80.0-94.0); MEAN PLATELET VOLUME 6.8 fl (7.4-10.4); MONOCYTES % 8.8 % (2.0-8.0); NEUTROPHILS % 50.5 % (40.0-76.0); PLATELET 820 x1000/uL (130-400); RED CELL DISTRIBUTION WIDTH 20.2 % (11.6-14.6)
[2018-08-09 07:10] LABS: CHLORIDE 107 mEq/L (98-107)
[2018-08-09 08:00] VITALS: BP 116/60
[2018-08-09] MEDS: MULTIVITAMINS,THER W-MINERALS TABLET PO SCH (09:20)
[2018-08-09] MEDS: ZINC SULFATE 220 MG ( 50 ) CAPSULE PO SCH (09:20)
[2018-08-09] MEDS: NICOTINE 7MG PATCH TD SCH (09:20)
[2018-08-09] MEDS: ASCORBIC ACID 250 MG TABLET PO SCH ×2 (09:20→21:49)
[2018-08-09] MEDS: METOPROLOL TARTRATE 25MG TABLET PO SCH (09:21)
[2018-08-09] MEDS: FAMOTIDINE 20MG TABLET PO SCH ×2 (09:21→19:03)
[2018-08-09] MEDS: METRONIDAZOLE 500MG TABLET PO SCH ×2 (09:21→21:49)
[2018-08-09] MEDS: ASPIRIN 81MG TABLET PO SCH (09:24)
[2018-08-09] MEDS: CEFTRIAXONE 2 G in DEXTROSE 5% WATER 50 ML IV SCH (11:30)
[2018-08-09] MEDS: SODIUM HYPOCHLORITE 0.125% 473ML SOLUTION TOP SCH (11:31)
[2018-08-09 12:00] VITALS: BP 101/52
[2018-08-09 17:11] VITALS: BP 105/55
[2018-08-09] MEDS: DOCUSATE SODIUM 100MG CAPSULE PO SCH (19:03)
[2018-08-09 20:00] VITALS: BP 118/65
[2018-08-10] VITALS: BP 146/63
[2018-08-10 04:00] VITALS: BP 115/63
[2018-08-10 06:37] LABS: BASOPHILS % 0.8 % (0.0-2.0); EOSINOPHILS % 1.2 % (0.0-5.0); HEMATOCRIT. 22.8 % (42.0-52.0); HEMOGLOBIN. 7.7 g/dL (14.0-18.0); LYMPHOCYTES % 21.1 % (20.0-50.0); MEAN CORPUSCULAR HEMOGLOBIN 28.9 pg (28.0-32.0); MEAN CORPUSCULAR VOLUME 85.7 fL (80.0-94.0); MEAN PLATELET VOLUME 6.9 fl (7.4-10.4); MONOCYTES % 10.5 % (2.0-8.0); NEUTROPHILS % 66.4 % (40.0-76.0); PLATELET 789 x1000/uL (130-400); RED BLOOD CELL COUNT 2.66 mill/uL (4.7-6.1); RED CELL DISTRIBUTION WIDTH 20.5 % (11.6-14.6)
[2018-08-10 08:00] VITALS: BP 127/60
[2018-08-10 08:11] LABS: CHLORIDE 107 mEq/L (98-107)
[2018-08-10] MEDS: METRONIDAZOLE 500MG TABLET PO SCH ×2 (08:49→21:29)
[2018-08-10] MEDS: DOCUSATE SODIUM 100MG CAPSULE PO SCH ×2 (08:49→17:01)
[2018-08-10] MEDS: ZINC SULFATE 220 MG ( 50 ) CAPSULE PO SCH (08:50)
[2018-08-10] MEDS: ASCORBIC ACID 250 MG TABLET PO SCH ×2 (08:50→21:28)
[2018-08-10] MEDS: FAMOTIDINE 20MG TABLET PO SCH ×2 (08:50→17:01)
[2018-08-10] MEDS: NICOTINE 7MG PATCH TD SCH (08:50)
[2018-08-10] MEDS: MULTIVITAMINS,THER W-MINERALS TABLET PO SCH (08:50)
[2018-08-10] MEDS: CEFTRIAXONE 2 G in DEXTROSE 5% WATER 50 ML IV SCH (10:56)
[2018-08-10 12:00] VITALS: BP 120/57
[2018-08-10 16:00] VITALS: BP 117/79
[2018-08-10] MEDS: SODIUM HYPOCHLORITE 0.125% 473ML SOLUTION TOP SCH (17:01)
[2018-08-10 20:00] VITALS: BP 117/63
[2018-08-11] VITALS: BP 116/66
[2018-08-11 04:00] VITALS: BP 119/60
[2018-08-11 08:00] VITALS: BP 96/54
[2018-08-11] MEDS: NICOTINE 7MG PATCH TD SCH (09:00)
[2018-08-11] MEDS: ZINC SULFATE 220 MG ( 50 ) CAPSULE PO SCH (09:07)
[2018-08-11] MEDS: DOCUSATE SODIUM 100MG CAPSULE PO SCH ×2 (09:07→19:15)
[2018-08-11] MEDS: METRONIDAZOLE 500MG TABLET PO SCH ×2 (09:07→20:52)
[2018-08-11] MEDS: MULTIVITAMINS,THER W-MINERALS TABLET PO SCH (09:07)
[2018-08-11] MEDS: FAMOTIDINE 20MG TABLET PO SCH ×2 (09:07→19:15)
[2018-08-11] MEDS: ASCORBIC ACID 250 MG TABLET PO SCH ×2 (09:07→20:52)
[2018-08-11] MEDS: SODIUM HYPOCHLORITE 0.125% 473ML SOLUTION TOP SCH (09:08)
[2018-08-11 09:22] LABS: BASOPHILS % 0.7 % (0.0-2.0); EOSINOPHILS % 1.9 % (0.0-5.0); HEMATOCRIT. 23.2 % (42.0-52.0); HEMOGLOBIN. 7.8 g/dL (14.0-18.0); LYMPHOCYTES % 24.2 % (20.0-50.0); MEAN CORPUSCULAR HEMOGLOBIN 28.7 pg (28.0-32.0); MEAN CORPUSCULAR VOLUME 85.7 fL (80.0-94.0); MONOCYTES % 5.8 % (2.0-8.0); NEUTROPHILS % 67.4 % (40.0-76.0); PLATELET 852 x1000/uL (130-400); RED BLOOD CELL COUNT 2.71 mill/uL (4.7-6.1); RED CELL DISTRIBUTION WIDTH 20.6 % (11.6-14.6)
[2018-08-11 10:29] LABS: CHLORIDE 105 mEq/L (98-107)
[2018-08-11] MEDS: CEFTRIAXONE 2 G in DEXTROSE 5% WATER 50 ML IV SCH (11:19)
[2018-08-11 12:00] VITALS: BP 118/59
[2018-08-11 16:00] VITALS: BP 115/66
[2018-08-11 20:00] VITALS: BP 126/64
[2018-08-12] VITALS: BP 118/63
[2018-08-12 07:31] LABS: HEMATOCRIT 25.4 % (42.0-52.0); HEMOGLOBIN 8.5 g/dL (14.0-18.0); MEAN CORPUSCULAR HEMOGLOBIN 28.9 pg (28.0-32.0); MEAN CORPUSCULAR VOLUME 86.4 fL (80.0-94.0); PLATELET 779 x1000/uL (130-400); RED BLOOD CELL COUNT 2.94 mill/uL (4.7-6.1); RED CELL DISTRIBUTION WIDTH 20.6 % (11.6-14.6)
[2018-08-12 08:00] VITALS: BP 89/44
[2018-08-12] MEDS: NICOTINE 7MG PATCH TD SCH (09:00)
[2018-08-12] MEDS: METRONIDAZOLE 500MG TABLET PO SCH ×2 (09:35→20:50)
[2018-08-12] MEDS: ZINC SULFATE 220 MG ( 50 ) CAPSULE PO SCH (09:35)
[2018-08-12] MEDS: ASCORBIC ACID 250 MG TABLET PO SCH ×2 (09:35→20:50)
[2018-08-12] MEDS: MULTIVITAMINS,THER W-MINERALS TABLET PO SCH (09:35)
[2018-08-12] MEDS: FAMOTIDINE 20MG TABLET PO SCH ×2 (09:35→18:24)
[2018-08-12] MEDS: DOCUSATE SODIUM 100MG CAPSULE PO SCH ×2 (09:35→18:24)
[2018-08-12] MEDS: SODIUM HYPOCHLORITE 0.125% 473ML SOLUTION TOP SCH (09:36)
[2018-08-12] MEDS: SODIUM CHLORIDE 0.9% 500 ML IV NR ×3 (11:37→12:35)
[2018-08-12] MEDS: CEFTRIAXONE 2 G in DEXTROSE 5% WATER 50 ML IV SCH (11:37)
[2018-08-12 12:00] VITALS: BP 99/50
[2018-08-12 16:00] VITALS: BP 107/51
[2018-08-12 20:00] VITALS: BP 124/62
[2018-08-12] MEDS: ACETAMINOPHEN 650MG/20.3ML UDC PO PRN (20:50)
[2018-08-13] VITALS: BP 105/54
[2018-08-13 04:00] VITALS: BP 135/59
[2018-08-13 06:48] LABS: CHLORIDE 111 mEq/L (98-107)
[2018-08-13 07:16] LABS: HEMOGLOBIN 8.2 g/dL (14.0-18.0); MEAN CORPUSCULAR HEMOGLOBIN 28.5 pg (28.0-32.0); MEAN CORPUSCULAR VOLUME 86.9 fL (80.0-94.0); PLATELET 615 x1000/uL (130-400); RED BLOOD CELL COUNT 2.88 mill/uL (4.7-6.1); RED CELL DISTRIBUTION WIDTH 20.6 % (11.6-14.6)
[2018-08-13 08:00] VITALS: BP 113/55
[2018-08-13] MEDS: NICOTINE 7MG PATCH TD SCH (09:00)
[2018-08-13] MEDS: ZINC SULFATE 220 MG ( 50 ) CAPSULE PO SCH (09:28)
[2018-08-13] MEDS: DOCUSATE SODIUM 100MG CAPSULE PO SCH ×2 (09:28→18:32)
[2018-08-13] MEDS: FAMOTIDINE 20MG TABLET PO SCH ×2 (09:28→18:32)
[2018-08-13] MEDS: METRONIDAZOLE 500MG TABLET PO SCH ×2 (09:28→21:59)
[2018-08-13] MEDS: ASCORBIC ACID 250 MG TABLET PO SCH ×2 (09:28→21:59)
[2018-08-13] MEDS: MULTIVITAMINS,THER W-MINERALS TABLET PO SCH (09:28)
[2018-08-13] MEDS: SODIUM HYPOCHLORITE 0.125% 473ML SOLUTION TOP SCH (09:29)
[2018-08-13] MEDS: CEFTRIAXONE 2 G in DEXTROSE 5% WATER 50 ML IV SCH (11:28)
[2018-08-13 12:00] VITALS: BP 96/39
[2018-08-13] MEDS ORDERED: SODIUM CHLORIDE 0.9% 500 ML IV ONE (14:45)
[2018-08-13 16:00] VITALS: BP 117/62
[2018-08-13 20:00] VITALS: BP 112/50
[2018-08-14] VITALS (9 sets, daily range): BP systolic 102–120; BP diastolic 47–68
[2018-08-14 06:08] LABS: MEAN CORPUSCULAR HEMOGLOBIN 29.2 pg (28.0-32.0); MEAN CORPUSCULAR VOLUME 87.1 fL (80.0-94.0); PLATELET 574 x1000/uL (130-400); RED BLOOD CELL COUNT 2.42 mill/uL (4.7-6.1); RED CELL DISTRIBUTION WIDTH 20.8 % (11.6-14.6)
[2018-08-14] MEDS: ZINC SULFATE 220 MG ( 50 ) CAPSULE PO SCH (08:22)
[2018-08-14] MEDS: DOCUSATE SODIUM 100MG CAPSULE PO SCH ×2 (08:22→16:00)
[2018-08-14] MEDS: METRONIDAZOLE 500MG TABLET PO SCH ×2 (08:22→21:03)
[2018-08-14] MEDS: FAMOTIDINE 20MG TABLET PO SCH ×2 (08:22→16:01)
[2018-08-14] MEDS: MULTIVITAMINS,THER W-MINERALS TABLET PO SCH (08:23)
[2018-08-14] MEDS: NICOTINE 7MG PATCH TD SCH (08:23)
[2018-08-14] MEDS: ASCORBIC ACID 250 MG TABLET PO SCH ×2 (08:23→21:03)
[2018-08-14] MEDS: CEFTRIAXONE 2 G in DEXTROSE 5% WATER 50 ML IV SCH (10:18)
[2018-08-14] MEDS: SODIUM HYPOCHLORITE 0.125% 473ML SOLUTION TOP SCH (16:00)
[2018-08-14 21:39] LABS: HEMOGLOBIN 8.4 g/dL (14.0-18.0)
[2018-08-15 04:00] VITALS: BP 94/53
[2018-08-15] MEDS: DOCUSATE SODIUM 100MG CAPSULE PO SCH ×2 (08:28→17:56)
[2018-08-15] MEDS: MULTIVITAMINS,THER W-MINERALS TABLET PO SCH (08:29)
[2018-08-15] MEDS: FAMOTIDINE 20MG TABLET PO SCH ×2 (08:29→17:56)
[2018-08-15] MEDS: ZINC SULFATE 220 MG ( 50 ) CAPSULE PO SCH (08:29)
[2018-08-15] MEDS: ASCORBIC ACID 250 MG TABLET PO SCH ×2 (08:29→21:17)
[2018-08-15] MEDS: NICOTINE 7MG PATCH TD SCH (08:29)
[2018-08-15] MEDS: METRONIDAZOLE 500MG TABLET PO SCH ×2 (08:29→21:17)
[2018-08-15 08:30] VITALS: BP 97/48
[2018-08-15 12:00] VITALS: BP 100/58
[2018-08-15 14:55] LABS: HEMATOCRIT 23.6 % (42.0-52.0); HEMOGLOBIN 7.9 g/dL (14.0-18.0); MEAN CORPUSCULAR HEMOGLOBIN 29.2 pg (28.0-32.0); MEAN CORPUSCULAR VOLUME 87.4 fL (80.0-94.0); PLATELET 530 x1000/uL (130-400); RED CELL DISTRIBUTION WIDTH 20.7 % (11.6-14.6)
[2018-08-15 15:11] LABS: CHLORIDE 108 mEq/L (98-107)
[2018-08-15] MEDS: CEFTRIAXONE 2 G in DEXTROSE 5% WATER 50 ML IV SCH (15:17)
[2018-08-15 16:30] VITALS: BP 121/60
[2018-08-15 20:00] VITALS: BP 104/57
[2018-08-16] VITALS: BP 99/53
[2018-08-16 04:00] VITALS: BP 94/54
[2018-08-16 07:01] LABS: HEMATOCRIT 22.3 % (42.0-52.0); HEMOGLOBIN 7.6 g/dL (14.0-18.0); MEAN CORPUSCULAR HEMOGLOBIN 29.9 pg (28.0-32.0); MEAN CORPUSCULAR VOLUME 87.8 fL (80.0-94.0); PLATELET 425 x1000/uL (130-400); RED BLOOD CELL COUNT 2.54 mill/uL (4.7-6.1); RED CELL DISTRIBUTION WIDTH 20.5 % (11.6-14.6)
[2018-08-16 08:00] VITALS: BP 120/70
[2018-08-16] MEDS: NICOTINE 7MG PATCH TD SCH (09:00)
[2018-08-16] MEDS: ZINC SULFATE 220 MG ( 50 ) CAPSULE PO SCH (09:22)
[2018-08-16] MEDS: MULTIVITAMINS,THER W-MINERALS TABLET PO SCH (09:22)
[2018-08-16] MEDS: DOCUSATE SODIUM 100MG CAPSULE PO SCH ×2 (09:22→17:04)
[2018-08-16] MEDS: ASCORBIC ACID 250 MG TABLET PO SCH ×2 (09:22→22:16)
[2018-08-16] MEDS: FAMOTIDINE 20MG TABLET PO SCH ×2 (09:22→17:04)
[2018-08-16] MEDS: METRONIDAZOLE 500MG TABLET PO SCH ×2 (09:22→22:16)
[2018-08-16] MEDS: CEFTRIAXONE 2 G in DEXTROSE 5% WATER 50 ML IV SCH (10:34)
[2018-08-16 12:00] VITALS: BP 96/49
[2018-08-16 16:00] VITALS: BP 108/56
[2018-08-16 20:00] VITALS: BP 111/53
[2018-08-17] VITALS: BP 109/55
[2018-08-17] MEDS: ACETAMINOPHEN 650MG/20.3ML UDC PO PRN (00:40)
[2018-08-17 04:00] VITALS: BP 101/53
[2018-08-17 08:00] VITALS: BP_SYST 110; BP_SYST 111; BP_DIAS 60
[2018-08-17] MEDS: NICOTINE 7MG PATCH TD SCH (08:20)
[2018-08-17 08:39] LABS: BASOPHILS % 0.3 % (0.0-2.0); EOSINOPHILS % 1.7 % (0.0-5.0); HEMATOCRIT. 24.7 % (42.0-52.0); HEMOGLOBIN. 8.1 g/dL (14.0-18.0); LYMPHOCYTES % 15.3 % (20.0-50.0); MEAN CORPUSCULAR HEMOGLOBIN 29.2 pg (28.0-32.0); MEAN CORPUSCULAR VOLUME 88.5 fL (80.0-94.0); MEAN PLATELET VOLUME 6.4 fl (7.4-10.4); MONOCYTES % 7.9 % (2.0-8.0); NEUTROPHILS % 74.8 % (40.0-76.0); PLATELET 500 x1000/uL (130-400); RED BLOOD CELL COUNT 2.79 mill/uL (4.7-6.1); RED CELL DISTRIBUTION WIDTH 20.7 % (11.6-14.6)
[2018-08-17 08:56] LABS: CHLORIDE 108 mEq/L (98-107)
[2018-08-17] MEDS: MULTIVITAMINS,THER W-MINERALS TABLET PO SCH (09:12)
[2018-08-17] MEDS: FAMOTIDINE 20MG TABLET PO SCH ×2 (09:12→17:35)
[2018-08-17] MEDS: DOCUSATE SODIUM 100MG CAPSULE PO SCH ×2 (09:12→17:35)
[2018-08-17] MEDS: CEFTRIAXONE 2 G in DEXTROSE 5% WATER 50 ML IV SCH (09:12)
[2018-08-17] MEDS: METRONIDAZOLE 500MG TABLET PO SCH ×2 (09:12→21:05)
[2018-08-17] MEDS: ASCORBIC ACID 250 MG TABLET PO SCH ×2 (09:12→21:05)
[2018-08-17] MEDS: ZINC SULFATE 220 MG ( 50 ) CAPSULE PO SCH (09:12)
[2018-08-17 12:00] VITALS: BP 108/60
[2018-08-17] MEDS: HYDROCODONE/ACETAMINOPHEN 5/325MG TABLET PO PRN (12:04)
[2018-08-17 16:00] VITALS: BP 104/52
[2018-08-17 20:00] VITALS: BP 105/56
[2018-08-18] VITALS: BP 101/52
[2018-08-18 03:55] VITALS: BP 93/44
[2018-08-18 08:00] VITALS: BP 106/50
[2018-08-18] MEDS: NICOTINE 7MG PATCH TD SCH ×2 (09:00→13:00)
[2018-08-18] MEDS: CEFTRIAXONE 2 G in DEXTROSE 5% WATER 50 ML IV SCH (09:41)
[2018-08-18] MEDS: METRONIDAZOLE 500MG TABLET PO SCH ×2 (09:41→22:51)
[2018-08-18] MEDS: ZINC SULFATE 220 MG ( 50 ) CAPSULE PO SCH (09:42)
[2018-08-18] MEDS: ASCORBIC ACID 250 MG TABLET PO SCH ×2 (09:42→22:51)
[2018-08-18] MEDS: FAMOTIDINE 20MG TABLET PO SCH ×2 (09:42→18:03)
[2018-08-18] MEDS: DOCUSATE SODIUM 100MG CAPSULE PO SCH ×2 (09:42→18:03)
[2018-08-18] MEDS: MULTIVITAMINS,THER W-MINERALS TABLET PO SCH (09:42)
[2018-08-18 11:57] VITALS: BP 92/61
[2018-08-18 12:47] LABS: HEMATOCRIT 25.5 % (42.0-52.0); HEMOGLOBIN 8.3 g/dL (14.0-18.0); MEAN CORPUSCULAR HEMOGLOBIN 28.8 pg (28.0-32.0); MEAN CORPUSCULAR VOLUME 87.9 fL (80.0-94.0); PLATELET 516 x1000/uL (130-400); RED CELL DISTRIBUTION WIDTH 20.5 % (11.6-14.6)
[2018-08-18] MEDS ORDERED: IPRATROPIUM/ALBUTEROL 0.5-3(2.5)MG/3ML NEB HHN PRN (14:00)
[2018-08-18 16:00] VITALS: BP 91/47
[2018-08-18] MEDS ORDERED: ACETAMINOPHEN 650MG/20.3ML UDC PO PRN (16:45)
[2018-08-18 20:00] VITALS: BP 102/52
[2018-08-19] VITALS: BP 98/52
[2018-08-19 04:00] VITALS: BP 95/55
[2018-08-19 08:00] VITALS: BP 98/51
[2018-08-19] MEDS: NICOTINE 7MG PATCH TD SCH (09:00)
[2018-08-19] MEDS: FAMOTIDINE 20MG TABLET PO SCH ×2 (09:15→17:04)
[2018-08-19] MEDS: CEFTRIAXONE 2 G in DEXTROSE 5% WATER 50 ML IV SCH (09:15)
[2018-08-19] MEDS: METRONIDAZOLE 500MG TABLET PO SCH ×2 (09:15→21:58)
[2018-08-19] MEDS: ASCORBIC ACID 250 MG TABLET PO SCH ×2 (09:15→21:58)
[2018-08-19] MEDS: MULTIVITAMINS,THER W-MINERALS TABLET PO SCH (09:15)
[2018-08-19] MEDS: ZINC SULFATE 220 MG ( 50 ) CAPSULE PO SCH (09:15)
[2018-08-19] MEDS: DOCUSATE SODIUM 100MG CAPSULE PO SCH ×2 (09:15→17:07)
[2018-08-19 10:18] LABS: BASOPHILS % 0.3 % (0.0-2.0); HEMATOCRIT. 24.9 % (42.0-52.0); HEMOGLOBIN. 8.2 g/dL (14.0-18.0); LYMPHOCYTES % 14.4 % (20.0-50.0); MEAN CORPUSCULAR HEMOGLOBIN 29.1 pg (28.0-32.0); MEAN CORPUSCULAR VOLUME 88.5 fL (80.0-94.0); MEAN PLATELET VOLUME 6.6 fl (7.4-10.4); MONOCYTES % 6.2 % (2.0-8.0); NEUTROPHILS % 78.1 % (40.0-76.0); PLATELET 490 x1000/uL (130-400); RED BLOOD CELL COUNT 2.81 mill/uL (4.7-6.1); RED CELL DISTRIBUTION WIDTH 20.4 % (11.6-14.6)
[2018-08-19 12:00] VITALS: BP 101/52
[2018-08-19 16:00] VITALS: BP 100/71
[2018-08-19 20:00] VITALS: BP 98/49
[2018-08-20] VITALS: BP 91/50
[2018-08-20 04:00] VITALS: BP 98/51
[2018-08-20 08:00] VITALS: BP 118/67
[2018-08-20] MEDS: NICOTINE 7MG PATCH TD SCH (09:00)
[2018-08-20] MEDS: ASCORBIC ACID 250 MG TABLET PO SCH (09:49)
[2018-08-20] MEDS: METRONIDAZOLE 500MG TABLET PO SCH ×2 (09:49→20:22)
[2018-08-20] MEDS: DOCUSATE SODIUM 100MG CAPSULE PO SCH ×2 (09:49→16:22)
[2018-08-20] MEDS: CEFTRIAXONE 2 G in DEXTROSE 5% WATER 50 ML IV SCH (09:49)
[2018-08-20] MEDS: FAMOTIDINE 20MG TABLET PO SCH ×2 (09:49→16:22)
[2018-08-20] MEDS: ZINC SULFATE 220 MG ( 50 ) CAPSULE PO SCH (09:49)
[2018-08-20] MEDS: MULTIVITAMINS,THER W-MINERALS TABLET PO SCH (09:49)
[2018-08-20 16:00] VITALS: BP 105/53
[2018-08-20] MEDS: HYDROCODONE/ACETAMINOPHEN 5/325MG TABLET PO PRN (16:24)
[2018-08-20] MEDS ORDERED: HYDROCODONE/ACETAMINOPHEN 5/325MG TABLET PO PRN (17:45)
[2018-08-20 20:00] VITALS: BP 103/51
[2018-08-20] MEDS ORDERED: ASCORBIC ACID 250 MG TABLET PO SCH (21:00)
[2018-08-21] VITALS: BP 106/51
[2018-08-21 04:00] VITALS: BP 114/60
[2018-08-21 08:00] VITALS: BP 104/54
[2018-08-21] MEDS: DOCUSATE SODIUM 100MG CAPSULE PO SCH ×2 (08:33→18:21)
[2018-08-21] MEDS: ZINC SULFATE 220 MG ( 50 ) CAPSULE PO SCH (08:33)
[2018-08-21] MEDS: FAMOTIDINE 20MG TABLET PO SCH ×2 (08:33→18:21)
[2018-08-21] MEDS: METRONIDAZOLE 500MG TABLET PO SCH ×2 (08:33→20:38)
[2018-08-21] MEDS: CEFTRIAXONE 2 G in DEXTROSE 5% WATER 50 ML IV SCH (08:33)
[2018-08-21] MEDS: MULTIVITAMINS,THER W-MINERALS TABLET PO SCH (08:33)
[2018-08-21] MEDS: NICOTINE 7MG PATCH TD SCH (08:34)
[2018-08-21 08:35] LABS: BASOPHILS % 0.3 % (0.0-2.0); EOSINOPHILS % 1.6 % (0.0-5.0); HEMATOCRIT. 23.5 % (42.0-52.0); LYMPHOCYTES % 15.5 % (20.0-50.0); MEAN CORPUSCULAR HEMOGLOBIN 30.1 pg (28.0-32.0); MEAN CORPUSCULAR VOLUME 88.7 fL (80.0-94.0); MEAN PLATELET VOLUME 6.9 fl (7.4-10.4); MONOCYTES % 7.2 % (2.0-8.0); NEUTROPHILS % 75.4 % (40.0-76.0); PLATELET 509 x1000/uL (130-400); RED BLOOD CELL COUNT 2.65 mill/uL (4.7-6.1); RED CELL DISTRIBUTION WIDTH 19.7 % (11.6-14.6)
[2018-08-21 09:35] LABS: CHLORIDE 102 mEq/L (98-107)
[2018-08-21] MEDS ORDERED: LIDOCAINE HCL/EPINEPHRINE 1%-EPI 1:100,000 30 ML VIAL INFIL NR (10:00)
[2018-08-21 12:00] VITALS: BP 107/57
[2018-08-21 16:00] VITALS: BP 105/56
[2018-08-21 20:00] VITALS: BP 103/47
[2018-08-22] VITALS: BP 93/39
[2018-08-22 04:00] VITALS: BP 105/53
[2018-08-22 07:42] LABS: HEMATOCRIT 23.3 % (42.0-52.0); MEAN CORPUSCULAR HEMOGLOBIN 30.5 pg (28.0-32.0); MEAN CORPUSCULAR VOLUME 88.5 fL (80.0-94.0); PLATELET 483 x1000/uL (130-400); RED BLOOD CELL COUNT 2.63 mill/uL (4.7-6.1); RED CELL DISTRIBUTION WIDTH 19.3 % (11.6-14.6)
[2018-08-22 08:00] VITALS: BP 95/54
[2018-08-22] MEDS: CEFTRIAXONE 2 G in DEXTROSE 5% WATER 50 ML IV SCH (08:48)
[2018-08-22] MEDS: MULTIVITAMINS,THER W-MINERALS TABLET PO SCH (08:49)
[2018-08-22] MEDS: FAMOTIDINE 20MG TABLET PO SCH ×2 (08:49→18:36)
[2018-08-22] MEDS: ZINC SULFATE 220 MG ( 50 ) CAPSULE PO SCH (08:49)
[2018-08-22] MEDS: NICOTINE 7MG PATCH TD SCH (08:49)
[2018-08-22] MEDS: DOCUSATE SODIUM 100MG CAPSULE PO SCH ×2 (08:49→18:36)
[2018-08-22] MEDS ORDERED: SODIUM CHLORIDE 0.9% 500 ML IV ONE (11:30)
[2018-08-22 12:00] VITALS: BP 100/59
[2018-08-22 16:00] VITALS: BP 101/45
[2018-08-22 20:00] VITALS: BP 111/68
[2018-08-22] MEDS: DIPHENHYDRAMINE 25MG CAPSULE PO PRN (20:09)
[2018-08-23] VITALS (7 sets, daily range): BP systolic 95–108; BP diastolic 48–61
[2018-08-23] MEDS: ACETAMINOPHEN 325MG TABLET PO PRN ×2 (01:11→21:09)
[2018-08-23] MEDS: DIPHENHYDRAMINE 25MG CAPSULE PO PRN ×2 (05:46→17:51)
[2018-08-23 08:02] LABS: BASOPHILS % 0.5 % (0.0-2.0); EOSINOPHILS % 2.1 % (0.0-5.0); HEMATOCRIT. 22.5 % (42.0-52.0); HEMOGLOBIN. 7.3 g/dL (14.0-18.0); LYMPHOCYTES % 18.4 % (20.0-50.0); MEAN CORPUSCULAR HEMOGLOBIN 29.2 pg (28.0-32.0); MEAN CORPUSCULAR VOLUME 89.6 fL (80.0-94.0); MEAN PLATELET VOLUME 7.5 fl (7.4-10.4); PLATELET 564 x1000/uL (130-400); RED BLOOD CELL COUNT 2.51 mill/uL (4.7-6.1); RED CELL DISTRIBUTION WIDTH 19.3 % (11.6-14.6)
[2018-08-23] MEDS: DOCUSATE SODIUM 100MG CAPSULE PO SCH ×2 (08:18→17:51)
[2018-08-23] MEDS: FAMOTIDINE 20MG TABLET PO SCH (08:18)
[2018-08-23] MEDS: ZINC SULFATE 220 MG ( 50 ) CAPSULE PO SCH (08:18)
[2018-08-23] MEDS: CEFTRIAXONE 2 G in DEXTROSE 5% WATER 50 ML IV SCH (08:23)
[2018-08-23] MEDS: MULTIVITAMINS,THER W-MINERALS TABLET PO SCH (08:24)
[2018-08-23] MEDS: NICOTINE 7MG PATCH TD SCH (08:24)
[2018-08-23] MEDS: METRONIDAZOLE 500MG TABLET PO SCH (21:08)
[2018-08-24] VITALS: BP 102/63
[2018-08-24 04:00] VITALS: BP 102/59
[2018-08-24] MEDS: MULTIVITAMINS,THER W-MINERALS TABLET PO SCH (08:22)
[2018-08-24] MEDS: CEFTRIAXONE 2 G in DEXTROSE 5% WATER 50 ML IV SCH (08:22)
[2018-08-24] MEDS: NICOTINE 7MG PATCH TD SCH (08:22)
[2018-08-24] MEDS: DOCUSATE SODIUM 100MG CAPSULE PO SCH ×2 (08:22→18:05)
[2018-08-24] MEDS: ZINC SULFATE 220 MG ( 50 ) CAPSULE PO SCH (08:22)
[2018-08-24] MEDS: METRONIDAZOLE 500MG TABLET PO SCH ×2 (08:22→21:10)
[2018-08-24 08:30] VITALS: BP 94/50
[2018-08-24 09:00] LABS: BASOPHILS % 0.5 % (0.0-2.0); EOSINOPHILS % 1.4 % (0.0-5.0); HEMATOCRIT. 21.9 % (42.0-52.0); HEMOGLOBIN. 7.4 g/dL (14.0-18.0); LYMPHOCYTES % 17.3 % (20.0-50.0); MEAN CORPUSCULAR VOLUME 89.3 fL (80.0-94.0); MEAN PLATELET VOLUME 7.4 fl (7.4-10.4); MONOCYTES % 7.2 % (2.0-8.0); NEUTROPHILS % 73.6 % (40.0-76.0); PLATELET 491 x1000/uL (130-400); RED BLOOD CELL COUNT 2.46 mill/uL (4.7-6.1); RED CELL DISTRIBUTION WIDTH 18.9 % (11.6-14.6)
[2018-08-24 09:07] LABS: CHLORIDE 101 mEq/L (98-107)
[2018-08-24 12:00] VITALS: BP 108/50
[2018-08-24 16:00] VITALS: BP 108/50
[2018-08-24] MEDS: DIPHENHYDRAMINE 25MG CAPSULE PO PRN (18:05)
[2018-08-24 20:00] VITALS: BP 93/41
[2018-08-25] VITALS: BP_SYST 152; BP_SYST 95; BP_DIAS 50; BP_DIAS 58
[2018-08-25 04:00] VITALS: BP 94/51
[2018-08-25 08:00] VITALS: BP 90/55
[2018-08-25] MEDS: CEFTRIAXONE 2 G in DEXTROSE 5% WATER 50 ML IV SCH (08:00)
[2018-08-25] MEDS: MULTIVITAMINS,THER W-MINERALS TABLET PO SCH (08:01)
[2018-08-25] MEDS: NICOTINE 7MG PATCH TD SCH (08:01)
[2018-08-25] MEDS: ZINC SULFATE 220 MG ( 50 ) CAPSULE PO SCH (08:01)
[2018-08-25] MEDS: METRONIDAZOLE 500MG TABLET PO SCH ×2 (08:01→20:43)
[2018-08-25] MEDS: DOCUSATE SODIUM 100MG CAPSULE PO SCH ×2 (08:01→16:44)
[2018-08-25 12:00] VITALS: BP 100/52
[2018-08-25] MEDS ORDERED: SODIUM CHLORIDE 0.9% 500 ML IV NR (12:30)
[2018-08-25 16:00] VITALS: BP 113/59
[2018-08-25 20:00] VITALS: BP 106/49
[2018-08-25] MEDS: DIPHENHYDRAMINE 25MG CAPSULE PO PRN (20:43)
[2018-08-26] VITALS: BP 101/45
[2018-08-26] MEDS: DIPHENHYDRAMINE 25MG CAPSULE PO PRN ×2 (02:55→21:42)
[2018-08-26 04:00] VITALS: BP 93/50
[2018-08-26 08:00] VITALS: BP 95/51
[2018-08-26] MEDS: CEFTRIAXONE 2 G in DEXTROSE 5% WATER 50 ML IV SCH (08:40)
[2018-08-26] MEDS: ZINC SULFATE 220 MG ( 50 ) CAPSULE PO SCH (08:40)
[2018-08-26] MEDS: DOCUSATE SODIUM 100MG CAPSULE PO SCH ×2 (08:40→16:20)
[2018-08-26] MEDS: METRONIDAZOLE 500MG TABLET PO SCH ×2 (08:40→21:42)
[2018-08-26] MEDS: MULTIVITAMINS,THER W-MINERALS TABLET PO SCH (08:40)
[2018-08-26] MEDS: NICOTINE 7MG PATCH TD SCH (08:41)
[2018-08-26 12:00] VITALS: BP 91/47
[2018-08-26 16:00] VITALS: BP 101/49
[2018-08-26] MEDS: ACETAMINOPHEN 325MG TABLET PO PRN (16:21)
[2018-08-26 20:00] VITALS: BP 100/56
[2018-08-26 21:21] LABS: HEMATOCRIT 23.2 % (42.0-52.0); HEMOGLOBIN 7.6 g/dL (14.0-18.0); MEAN CORPUSCULAR HEMOGLOBIN 29.5 pg (28.0-32.0); MEAN CORPUSCULAR VOLUME 90.1 fL (80.0-94.0); PLATELET 615 x1000/uL (130-400); RED BLOOD CELL COUNT 2.58 mill/uL (4.7-6.1); RED CELL DISTRIBUTION WIDTH 18.5 % (11.6-14.6)
[2018-08-26 21:28] LABS: CHLORIDE 99 mEq/L (98-107)
[2018-08-27] VITALS: BP 99/53
[2018-08-27 04:00] VITALS: BP 101/56
[2018-08-27] MEDS: DIPHENHYDRAMINE 25MG CAPSULE PO PRN ×2 (04:12→20:30)
[2018-08-27] MEDS: ACETAMINOPHEN 325MG TABLET PO PRN (04:12)
[2018-08-27] MEDS: NICOTINE 7MG PATCH TD SCH (09:00)
[2018-08-27] MEDS: METRONIDAZOLE 500MG TABLET PO SCH ×2 (09:23→20:30)
[2018-08-27] MEDS: DOCUSATE SODIUM 100MG CAPSULE PO SCH ×2 (09:23→17:36)
[2018-08-27] MEDS: CEFTRIAXONE 2 G in DEXTROSE 5% WATER 50 ML IV SCH (09:23)
[2018-08-27] MEDS: ZINC SULFATE 220 MG ( 50 ) CAPSULE PO SCH (09:23)
[2018-08-27] MEDS: MULTIVITAMINS,THER W-MINERALS TABLET PO SCH (09:23)
[2018-08-27] MEDS ORDERED: SODIUM CHLORIDE 0.9% 1,000 ML IV ONE (11:30)
[2018-08-27 16:00] VITALS: BP 91/45
[2018-08-27 20:00] VITALS: BP 98/49
[2018-08-28] VITALS: BP 97/52
[2018-08-28 04:00] VITALS: BP 106/55
[2018-08-28 07:32] LABS: HEMATOCRIT 21.7 % (42.0-52.0); HEMOGLOBIN 7.3 g/dL (14.0-18.0); MEAN CORPUSCULAR HEMOGLOBIN 29.9 pg (28.0-32.0); MEAN CORPUSCULAR VOLUME 89.3 fL (80.0-94.0); PLATELET 622 x1000/uL (130-400); RED BLOOD CELL COUNT 2.43 mill/uL (4.7-6.1); RED CELL DISTRIBUTION WIDTH 17.6 % (11.6-14.6)
[2018-08-28 08:56] VITALS: BP 102/54
[2018-08-28] MEDS: NICOTINE 7MG PATCH TD SCH (09:00)
[2018-08-28 12:00] VITALS: BP 102/51
[2018-08-28] MEDS: MULTIVITAMINS,THER W-MINERALS TABLET PO SCH (12:05)
[2018-08-28] MEDS: METRONIDAZOLE 500MG TABLET PO SCH ×2 (12:05→21:28)
[2018-08-28] MEDS: ZINC SULFATE 220 MG ( 50 ) CAPSULE PO SCH (12:05)
[2018-08-28] MEDS: DOCUSATE SODIUM 100MG CAPSULE PO SCH ×2 (12:07→19:07)
[2018-08-28] MEDS: CEFTRIAXONE 2 G in DEXTROSE 5% WATER 50 ML IV SCH (13:43)
[2018-08-28 16:00] VITALS: BP 98/55
[2018-08-28 20:00] VITALS: BP 121/64
[2018-08-28] MEDS: ACETAMINOPHEN 325MG TABLET PO PRN (21:29)
[2018-08-28] MEDS: DIPHENHYDRAMINE 25MG CAPSULE PO PRN (22:21)
[2018-08-29] VITALS: BP 101/54
[2018-08-29 04:00] VITALS: BP 94/54
[2018-08-29 08:06] LABS: HEMATOCRIT 22.8 % (42.0-52.0); HEMOGLOBIN 7.6 g/dL (14.0-18.0); MEAN CORPUSCULAR HEMOGLOBIN 30.1 pg (28.0-32.0); MEAN CORPUSCULAR VOLUME 90.1 fL (80.0-94.0); PLATELET 714 x1000/uL (130-400); RED BLOOD CELL COUNT 2.53 mill/uL (4.7-6.1); RED CELL DISTRIBUTION WIDTH 18.1 % (11.6-14.6)
[2018-08-29] MEDS: NICOTINE 7MG PATCH TD SCH (09:00)
[2018-08-29] MEDS: CEFTRIAXONE 2 G in DEXTROSE 5% WATER 50 ML IV SCH (10:34)
[2018-08-29] MEDS: ZINC SULFATE 220 MG ( 50 ) CAPSULE PO SCH (10:34)
[2018-08-29] MEDS: MULTIVITAMINS,THER W-MINERALS TABLET PO SCH (10:35)
[2018-08-29] MEDS: DOCUSATE SODIUM 100MG CAPSULE PO SCH ×2 (10:35→17:00)
[2018-08-29] MEDS: METRONIDAZOLE 500MG TABLET PO SCH ×2 (10:35→21:46)
[2018-08-29] MEDS: DIPHENHYDRAMINE 25MG CAPSULE PO PRN (10:48)
[2018-08-29 12:00] VITALS: BP 112/48
[2018-08-29 16:00] VITALS: BP 104/59
[2018-08-29 20:00] VITALS: BP 95/56
[2018-08-30] VITALS: BP 93/50
[2018-08-30] MEDS: DIPHENHYDRAMINE 25MG CAPSULE PO PRN ×2 (03:01→21:04)
[2018-08-30 04:00] VITALS: BP 100/46
[2018-08-30 08:00] VITALS: BP 107/60
[2018-08-30] MEDS: NICOTINE 7MG PATCH TD SCH (09:00)
[2018-08-30] MEDS: CEFTRIAXONE 2 G in DEXTROSE 5% WATER 50 ML IV SCH (10:01)
[2018-08-30] MEDS: MULTIVITAMINS,THER W-MINERALS TABLET PO SCH (10:01)
[2018-08-30] MEDS: ZINC SULFATE 220 MG ( 50 ) CAPSULE PO SCH (10:01)
[2018-08-30] MEDS: METRONIDAZOLE 500MG TABLET PO SCH ×2 (10:01→21:04)
[2018-08-30] MEDS: DOCUSATE SODIUM 100MG CAPSULE PO SCH ×2 (10:01→18:10)
[2018-08-30 12:00] VITALS: BP 97/42
[2018-08-30 16:00] VITALS: BP 94/45
[2018-08-30 20:00] VITALS: BP 100/52
[2018-08-31] VITALS: BP 111/62
[2018-08-31 04:00] VITALS: BP 101/58
[2018-08-31 08:00] VITALS: BP 97/59
[2018-08-31] MEDS: NICOTINE 7MG PATCH TD SCH (09:00)
[2018-08-31] MEDS: MULTIVITAMINS,THER W-MINERALS TABLET PO SCH (09:12)
[2018-08-31] MEDS: DOCUSATE SODIUM 100MG CAPSULE PO SCH ×2 (09:12→18:10)
[2018-08-31] MEDS: ZINC SULFATE 220 MG ( 50 ) CAPSULE PO SCH (09:12)
[2018-08-31] MEDS: CEFTRIAXONE 2 G in DEXTROSE 5% WATER 50 ML IV SCH (09:12)
[2018-08-31 12:00] VITALS: BP 113/73
[2018-08-31 16:00] VITALS: BP 110/46
[2018-08-31] MEDS: ACETAMINOPHEN 325MG TABLET PO PRN (18:28)
[2018-08-31 20:00] VITALS: BP 101/50
[2018-09-01] VITALS: BP 117/56
[2018-09-01 04:00] VITALS: BP 100/46
[2018-09-01 08:00] VITALS: BP 90/46
[2018-09-01] MEDS: NICOTINE 7MG PATCH TD SCH (09:00)
[2018-09-01] MEDS: ZINC SULFATE 220 MG ( 50 ) CAPSULE PO SCH (09:28)
[2018-09-01] MEDS: CEFTRIAXONE 2 G in DEXTROSE 5% WATER 50 ML IV SCH (09:28)
[2018-09-01] MEDS: DOCUSATE SODIUM 100MG CAPSULE PO SCH ×2 (09:28→17:16)
[2018-09-01] MEDS: MULTIVITAMINS,THER W-MINERALS TABLET PO SCH (09:28)
[2018-09-01 12:00] VITALS: BP 101/49
[2018-09-01 12:58] LABS: CHLORIDE 100 mEq/L (98-107)
[2018-09-01 16:00] VITALS: BP 94/47
[2018-09-01 16:22] LABS: BASOPHILS % 0.4 % (0.0-2.0); EOSINOPHILS % 2.5 % (0.0-5.0); HEMATOCRIT. 21.3 % (42.0-52.0); HEMOGLOBIN. 7.1 g/dL (14.0-18.0); MEAN CORPUSCULAR HEMOGLOBIN 29.5 pg (28.0-32.0); MEAN PLATELET VOLUME 6.7 fl (7.4-10.4); MONOCYTES % 8.9 % (2.0-8.0); NEUTROPHILS % 67.2 % (40.0-76.0); PLATELET 769 x1000/uL (130-400); RED CELL DISTRIBUTION WIDTH 17.1 % (11.6-14.6)
[2018-09-01] MEDS: ACETAMINOPHEN 325MG TABLET PO PRN (17:27)
[2018-09-01 20:00] VITALS: BP 104/62
[2018-09-02] VITALS (9 sets, daily range): BP systolic 90–112; BP diastolic 40–64
[2018-09-02] MEDS: NICOTINE 7MG PATCH TD SCH (09:00)
[2018-09-02] MEDS ORDERED: SODIUM CHLORIDE 0.9% 500 ML IV ONE (09:30)
[2018-09-02] MEDS: DOCUSATE SODIUM 100MG CAPSULE PO SCH ×2 (09:32→18:29)
[2018-09-02] MEDS: ZINC SULFATE 220 MG ( 50 ) CAPSULE PO SCH (09:32)
[2018-09-02] MEDS: MULTIVITAMINS,THER W-MINERALS TABLET PO SCH (09:32)
[2018-09-02] MEDS: DIPHENHYDRAMINE 25MG CAPSULE PO PRN (13:50)
[2018-09-02] MEDS: ACETAMINOPHEN 325MG TABLET PO PRN (21:20)
[2018-09-03] VITALS (7 sets, daily range): BP systolic 101–134; BP diastolic 49–82
[2018-09-03 02:38] LABS: BASOPHILS % 0.4 % (0.0-2.0); EOSINOPHILS % 3.4 % (0.0-5.0); HEMATOCRIT. 23.2 % (42.0-52.0); HEMOGLOBIN. 7.8 g/dL (14.0-18.0); LYMPHOCYTES % 21.9 % (20.0-50.0); MEAN CORPUSCULAR VOLUME 88.9 fL (80.0-94.0); MEAN PLATELET VOLUME 6.8 fl (7.4-10.4); MONOCYTES % 9.1 % (2.0-8.0); NEUTROPHILS % 65.2 % (40.0-76.0); PLATELET 693 x1000/uL (130-400); RED CELL DISTRIBUTION WIDTH 16.6 % (11.6-14.6)
[2018-09-03] MEDS: DOCUSATE SODIUM 100MG CAPSULE PO SCH ×2 (10:02→17:00)
[2018-09-03] MEDS: MULTIVITAMINS,THER W-MINERALS TABLET PO SCH (10:02)
[2018-09-03] MEDS: ZINC SULFATE 220 MG ( 50 ) CAPSULE PO SCH (10:02)
[2018-09-03] MEDS: NICOTINE 7MG PATCH TD SCH (10:03)
[2018-09-03] MEDS: ACETAMINOPHEN 325MG TABLET PO PRN (20:57)
[2018-09-04] VITALS: BP 101/52
[2018-09-04 04:00] VITALS: BP 102/55
[2018-09-04 07:57] VITALS: BP 96/53
[2018-09-04] MEDS: MULTIVITAMINS,THER W-MINERALS TABLET PO SCH (08:33)
[2018-09-04] MEDS: ZINC SULFATE 220 MG ( 50 ) CAPSULE PO SCH (08:33)
[2018-09-04] MEDS: DOCUSATE SODIUM 100MG CAPSULE PO SCH ×2 (08:33→17:22)
[2018-09-04] MEDS: NICOTINE 7MG PATCH TD SCH (08:34)
[2018-09-04] MEDS: DIPHENHYDRAMINE 25MG CAPSULE PO PRN (08:36)
[2018-09-04 12:07] VITALS: BP 93/47
[2018-09-04 16:00] VITALS: BP 109/51
[2018-09-04 20:00] VITALS: BP 93/46
[2018-09-05] VITALS: BP 101/56
[2018-09-05] MEDS: ACETAMINOPHEN 325MG TABLET PO PRN ×2 (01:56→15:29)
[2018-09-05 04:00] VITALS: BP 93/42
[2018-09-05 08:00] VITALS: BP 103/49
[2018-09-05] MEDS: NICOTINE 7MG PATCH TD SCH (09:00)
[2018-09-05] MEDS: MULTIVITAMINS,THER W-MINERALS TABLET PO SCH (09:34)
[2018-09-05] MEDS: DOCUSATE SODIUM 100MG CAPSULE PO SCH ×2 (09:34→17:51)
[2018-09-05] MEDS: ZINC SULFATE 220 MG ( 50 ) CAPSULE PO SCH (09:34)
[2018-09-05 12:00] VITALS: BP 94/47
[2018-09-05 16:00] VITALS: BP 94/44
[2018-09-05 16:57] LABS: CLARITY URINE TURBID (CLEAR); COLOR URINE YELLOW (YELLOW); KETONES URINE NEGATIVE (NEGATIVE); LEUKOCYTE ESTERASE URINE 3+ (NEGATIVE); NITRITE URINE NEGATIVE (NEGATIVE); OCCULT BLOOD URINE 2+ (NEGATIVE); PROTEIN URINE NEGATIVE (NEGATIVE); SPECIFIC GRAVITY URINE 1.006 (1.005-1.030); UROBILINOGEN URINE 0.2 E.U./dL (0.2-1.0)
[2018-09-05 20:00] VITALS: BP 97/51
[2018-09-05 20:14] LABS: BASOPHILS % 0.5 % (0.0-2.0); EOSINOPHILS % 2.5 % (0.0-5.0); HEMATOCRIT. 24.5 % (42.0-52.0); HEMOGLOBIN. 8.2 g/dL (14.0-18.0); LYMPHOCYTES % 21.1 % (20.0-50.0); MEAN CORPUSCULAR HEMOGLOBIN 29.7 pg (28.0-32.0); MEAN CORPUSCULAR VOLUME 88.5 fL (80.0-94.0); MEAN PLATELET VOLUME 6.8 fl (7.4-10.4); MONOCYTES % 6.8 % (2.0-8.0); NEUTROPHILS % 69.1 % (40.0-76.0); PLATELET 780 x1000/uL (130-400); RED BLOOD CELL COUNT 2.77 mill/uL (4.7-6.1); RED CELL DISTRIBUTION WIDTH 16.6 % (11.6-14.6)
[2018-09-06] VITALS: BP 100/49
[2018-09-06 04:00] VITALS: BP 99/55
[2018-09-06] MEDS: DIPHENHYDRAMINE 25MG CAPSULE PO PRN (04:00)
[2018-09-06 08:00] VITALS: BP 118/60
[2018-09-06 08:20] LABS: BASOPHILS % 0.5 % (0.0-2.0); EOSINOPHILS % 2.2 % (0.0-5.0); HEMATOCRIT. 23.8 % (42.0-52.0); HEMOGLOBIN. 7.9 g/dL (14.0-18.0); LYMPHOCYTES % 19.7 % (20.0-50.0); MEAN CORPUSCULAR HEMOGLOBIN 29.3 pg (28.0-32.0); MEAN CORPUSCULAR VOLUME 88.4 fL (80.0-94.0); MEAN PLATELET VOLUME 6.8 fl (7.4-10.4); MONOCYTES % 6.5 % (2.0-8.0); NEUTROPHILS % 71.1 % (40.0-76.0); PLATELET 711 x1000/uL (130-400); RED BLOOD CELL COUNT 2.69 mill/uL (4.7-6.1); RED CELL DISTRIBUTION WIDTH 16.2 % (11.6-14.6)
[2018-09-06] MEDS: ZINC SULFATE 220 MG ( 50 ) CAPSULE PO SCH (08:49)
[2018-09-06] MEDS: MULTIVITAMINS,THER W-MINERALS TABLET PO SCH (08:49)
[2018-09-06] MEDS: ACETAMINOPHEN 325MG TABLET PO PRN (08:49)
[2018-09-06] MEDS: DOCUSATE SODIUM 100MG CAPSULE PO SCH ×2 (08:49→16:51)
[2018-09-06 08:59] LABS: CHLORIDE 101 mEq/L (98-107)
[2018-09-06] MEDS ORDERED: SODIUM CHLORIDE 0.9% 500 ML IV ONE (11:15)
[2018-09-06 12:00] VITALS: BP 139/59
[2018-09-06 16:00] VITALS: BP 103/86
[2018-09-06 20:00] VITALS: BP 109/52
[2018-09-07] VITALS: BP 95/48
[2018-09-07] MEDS: ACETAMINOPHEN 325MG TABLET PO PRN ×3 (03:10→19:39)
[2018-09-07] MEDS: DIPHENHYDRAMINE 25MG CAPSULE PO PRN (03:11)
[2018-09-07 04:00] VITALS: BP 99/54
[2018-09-07 08:00] VITALS: BP 106/56
[2018-09-07] MEDS: ZINC SULFATE 220 MG ( 50 ) CAPSULE PO SCH (09:23)
[2018-09-07] MEDS: MULTIVITAMINS,THER W-MINERALS TABLET PO SCH (09:23)
[2018-09-07 12:00] VITALS: BP 97/45
[2018-09-07 16:45] VITALS: BP 117/69
[2018-09-07 19:32] LABS: CLARITY URINE TURBID (CLEAR); COLOR URINE YELLOW (YELLOW); KETONES URINE NEGATIVE (NEGATIVE); LEUKOCYTE ESTERASE URINE 3+ (NEGATIVE); NITRITE URINE POSITIVE (NEGATIVE); OCCULT BLOOD URINE 3+ (NEGATIVE); PROTEIN URINE 2+ (NEGATIVE); SPECIFIC GRAVITY URINE 1.011 (1.005-1.030); UROBILINOGEN URINE 0.2 E.U./dL (0.2-1.0)
[2018-09-07 20:00] VITALS: BP 127/55
[2018-09-07] MEDS ORDERED: LEVOFLOXACIN 500MG PREMIX 100 ML IV SCH (21:00)
[2018-09-08] VITALS: BP 95/60
[2018-09-08 04:00] VITALS: BP 107/51
[2018-09-08 07:38] LABS: BASOPHILS % 0.4 % (0.0-2.0); EOSINOPHILS % 0.2 % (0.0-5.0); HEMATOCRIT. 21.5 % (42.0-52.0); HEMOGLOBIN. 7.2 g/dL (14.0-18.0); LYMPHOCYTES % 11.8 % (20.0-50.0); MEAN CORPUSCULAR HEMOGLOBIN 29.6 pg (28.0-32.0); MEAN CORPUSCULAR VOLUME 88.8 fL (80.0-94.0); MEAN PLATELET VOLUME 6.8 fl (7.4-10.4); MONOCYTES % 6.3 % (2.0-8.0); NEUTROPHILS % 81.3 % (40.0-76.0); PLATELET 588 x1000/uL (130-400); RED BLOOD CELL COUNT 2.42 mill/uL (4.7-6.1); RED CELL DISTRIBUTION WIDTH 16.1 % (11.6-14.6)
[2018-09-08 08:00] VITALS: BP 102/45
[2018-09-08] MEDS: ZINC SULFATE 220 MG ( 50 ) CAPSULE PO SCH (08:47)
[2018-09-08] MEDS: MULTIVITAMINS,THER W-MINERALS TABLET PO SCH (08:47)
[2018-09-08 08:53] LABS: CHLORIDE 100 mEq/L (98-107)
[2018-09-08 09:11] LABS: HIV SCREEN 4G Non Reactive (Non Reactive)
[2018-09-08 12:00] VITALS: BP 99/49
[2018-09-08] MEDS ORDERED: SODIUM CHLORIDE 0.9% 1,000 ML IV ONE (12:00)
[2018-09-08] MEDS: ACETAMINOPHEN 325MG TABLET PO PRN ×2 (12:32→17:40)
[2018-09-08] MEDS: DIPHENHYDRAMINE 25MG CAPSULE PO PRN ×2 (15:06→21:02)
[2018-09-08 16:00] VITALS: BP 106/43
[2018-09-08 20:00] VITALS: BP 92/49
[2018-09-08] MEDS ORDERED: VANCOMYCIN 1250MG in DEXTROSE 5% WATER 250ML IV NR (20:30)
[2018-09-08] MEDS ORDERED: LEVOFLOXACIN 500MG TABLET PO SCH (21:00)
[2018-09-09] VITALS: BP_SYST 109; BP_DIAS 55; BP_DIAS 59
[2018-09-09] MEDS: MEROPENEM 500 MG in SODIUM CHLORIDE 0.9% 50 ML IV SCH ×3 (03:19→17:20)
[2018-09-09] MEDS: LINEZOLID 600 MG PREMIX 300 ML IV SCH ×2 (03:19→13:59)
[2018-09-09 04:00] VITALS: BP 96/57
[2018-09-09] MEDS ORDERED: VANCOMYCIN 1 G PREMIX 200 ML IV SCH (05:00)
[2018-09-09 08:00] VITALS: BP 99/48
[2018-09-09] MEDS: ZINC SULFATE 220 MG ( 50 ) CAPSULE PO SCH (08:40)
[2018-09-09] MEDS: MULTIVITAMINS,THER W-MINERALS TABLET PO SCH (08:40)
[2018-09-09 10:03] LABS: BASOPHILS % 0.6 % (0.0-2.0); EOSINOPHILS % 0.3 % (0.0-5.0); HEMATOCRIT. 25.1 % (42.0-52.0); HEMOGLOBIN. 8.1 g/dL (14.0-18.0); MEAN CORPUSCULAR HEMOGLOBIN 28.7 pg (28.0-32.0); MEAN PLATELET VOLUME 7.2 fl (7.4-10.4); MONOCYTES % 7.7 % (2.0-8.0); NEUTROPHILS % 78.4 % (40.0-76.0); PLATELET 569 x1000/uL (130-400); RED BLOOD CELL COUNT 2.81 mill/uL (4.7-6.1); RED CELL DISTRIBUTION WIDTH 15.8 % (11.6-14.6)
[2018-09-09 10:37] LABS: CHLORIDE 99 mEq/L (98-107)
[2018-09-09 12:00] VITALS: BP 107/42
[2018-09-09] MEDS: SODIUM CHLORIDE 0.9% 1,000 ML IV SCH (13:01)
[2018-09-09] MEDS: DIPHENHYDRAMINE 25MG CAPSULE PO PRN (17:20)
[2018-09-09] MEDS: ACETAMINOPHEN 325MG TABLET PO PRN (17:20)
[2018-09-09 17:45] VITALS: BP 90/44
[2018-09-09 20:00] VITALS: BP 97/49
[2018-09-10] VITALS (7 sets, daily range): BP systolic 91–113; BP diastolic 44–54
[2018-09-10] MEDS: MEROPENEM 500 MG in SODIUM CHLORIDE 0.9% 50 ML IV SCH ×3 (02:58→19:37)
[2018-09-10] MEDS: LINEZOLID 600 MG PREMIX 300 ML IV SCH ×2 (02:58→14:23)
[2018-09-10] MEDS: SODIUM CHLORIDE 0.9% 1,000 ML IV SCH ×2 (03:04→14:22)
[2018-09-10] MEDS: METOPROLOL TARTRATE 50MG TABLET PO SCH ×3 (09:00→21:00)
[2018-09-10] MEDS: MULTIVITAMINS,THER W-MINERALS TABLET PO SCH (09:59)
[2018-09-10] MEDS: ZINC SULFATE 220 MG ( 50 ) CAPSULE PO SCH (09:59)
[2018-09-10 11:46] LABS: BASOPHILS % 0.6 % (0.0-2.0); EOSINOPHILS % 0.2 % (0.0-5.0); HEMATOCRIT. 23.7 % (42.0-52.0); HEMOGLOBIN. 7.9 g/dL (14.0-18.0); LYMPHOCYTES % 11.1 % (20.0-50.0); MEAN CORPUSCULAR HEMOGLOBIN 29.5 pg (28.0-32.0); MEAN CORPUSCULAR VOLUME 88.8 fL (80.0-94.0); MEAN PLATELET VOLUME 7.5 fl (7.4-10.4); MONOCYTES % 6.7 % (2.0-8.0); NEUTROPHILS % 81.4 % (40.0-76.0); PLATELET 532 x1000/uL (130-400); RED BLOOD CELL COUNT 2.67 mill/uL (4.7-6.1); RED CELL DISTRIBUTION WIDTH 16.2 % (11.6-14.6)
[2018-09-10 14:58] LABS: CHLORIDE 102 mEq/L (98-107)
== END 2018-09-10 21:30 | DRG 710 ==
LOC: ER 13:18 → EDBEDREQ 16:20 → ENRESERV 17:05 → 5WST 20:44
PROVIDERS: ADMIT Internal Medicine; ATTEND Internal Medicine
PROC: 0QB20ZX Excision of Right Pelvic Bone, Open Approach, Diagnostic (ICD-10-PCS; principal; 2018-07-22)
PROC: 0JB90ZZ Excision of Buttock Subcutaneous Tissue and Fascia, Open Approach (ICD-10-PCS; 2018-07-22)
PROC: 0JB70ZZ Excision of Back Subcutaneous Tissue and Fascia, Open Approach (ICD-10-PCS; 2018-07-22)
PROC: 0QBM0ZZ Excision of Left Tarsal, Open Approach (ICD-10-PCS; 2018-07-22)
PROC: 0QBL0ZZ Excision of Right Tarsal, Open Approach (ICD-10-PCS; 2018-07-22)
PROC: 0QBN0ZZ Excision of Right Metatarsal, Open Approach (ICD-10-PCS; 2018-07-22)
PROC: 05H533Z Insertion of Infusion Device into Right Subclavian Vein, Percutaneous Approach (ICD-10-PCS; 2018-07-22)
PROC: 30233N1 Transfusion of Nonautologous Red Blood Cells into Peripheral Vein, Percutaneous Approach (ICD-10-PCS; 2018-07-23)
PROC: 06H03DZ Insertion of Intraluminal Device into Inferior Vena Cava, Percutaneous Approach (ICD-10-PCS; 2018-07-24)
PROC: B5191ZA Fluoroscopy of Inferior Vena Cava using Low Osmolar Contrast, Guidance (ICD-10-PCS; 2018-07-24)
PROC: 0QB30ZZ Excision of Left Pelvic Bone, Open Approach (ICD-10-PCS; 2018-08-01)
PROC: 0JB70ZZ Excision of Back Subcutaneous Tissue and Fascia, Open Approach (ICD-10-PCS; 2018-08-01)
PROC: 0JB90ZZ Excision of Buttock Subcutaneous Tissue and Fascia, Open Approach (ICD-10-PCS; 2018-08-01)
PROC: 0JB70ZZ Excision of Back Subcutaneous Tissue and Fascia, Open Approach (ICD-10-PCS; 2018-08-01)
PROC: 0QBK0ZZ Excision of Left Fibula, Open Approach (ICD-10-PCS; 2018-08-08)
PROC: 0QBL0ZZ Excision of Right Tarsal, Open Approach (ICD-10-PCS; 2018-08-08)
PROC: 0QBM0ZZ Excision of Left Tarsal, Open Approach (ICD-10-PCS; 2018-08-08)
PROC: 0JBQ0ZZ Excision of Right Foot Subcutaneous Tissue and Fascia, Open Approach (ICD-10-PCS; 2018-08-08)
PROC: 0JB70ZZ Excision of Back Subcutaneous Tissue and Fascia, Open Approach (ICD-10-PCS; 2018-08-21)
PROC: 0JB90ZZ Excision of Buttock Subcutaneous Tissue and Fascia, Open Approach (ICD-10-PCS; 2018-08-21)
PROC: 0JB90ZZ Excision of Buttock Subcutaneous Tissue and Fascia, Open Approach (ICD-10-PCS; 2018-08-28)
PROC: 0JB90ZZ Excision of Buttock Subcutaneous Tissue and Fascia, Open Approach (ICD-10-PCS; 2018-09-04)
PROC: B5181ZA Fluoroscopy of Superior Vena Cava using Low Osmolar Contrast, Guidance (ICD-10-PCS; 2018-09-09)
PROC: 02HV33Z Insertion of Infusion Device into Superior Vena Cava, Percutaneous Approach (ICD-10-PCS; 2018-09-09)
PROC: B548ZZA Ultrasonography of Superior Vena Cava, Guidance (ICD-10-PCS; 2018-09-09)
DX: A41.9 Sepsis, unspecified organism (principal); E43 Unspecified severe protein-calorie malnutrition; L89.154 Pressure ulcer of sacral region, stage 4; D69.6 Thrombocytopenia, unspecified; I82.402 Acute embolism and thrombosis of unspecified deep veins of left lower extremity; G82.20 Paraplegia, unspecified; L89.619 Pressure ulcer of right heel, unspecified stage; L89.324 Pressure ulcer of left buttock, stage 4; I48.91 Unspecified atrial fibrillation; L89.214 Pressure ulcer of right hip, stage 4; L89.629 Pressure ulcer of left heel, unspecified stage; L89.314 Pressure ulcer of right buttock, stage 4; L97.419 Non-pressure chronic ulcer of right heel and midfoot with unspecified severity; L97.429 Non-pressure chronic ulcer of left heel and midfoot with unspecified severity; N39.0 Urinary tract infection, site not specified; D64.9 Anemia, unspecified; E87.6 Hypokalemia; B96.89 Other specified bacterial agents as the cause of diseases classified elsewhere; F17.210 Nicotine dependence, cigarettes, uncomplicated; I10 Essential (primary) hypertension; J44.9 Chronic obstructive pulmonary disease, unspecified; L03.90 Cellulitis, unspecified; L97.329 Non-pressure chronic ulcer of left ankle with unspecified severity; L97.319 Non-pressure chronic ulcer of right ankle with unspecified severity; B96.20 Unspecified Escherichia coli [E. coli] as the cause of diseases classified elsewhere; F16.10 Hallucinogen abuse, uncomplicated; Z16.21 Resistance to vancomycin; B96.4 Proteus (mirabilis) (morganii) as the cause of diseases classified elsewhere; Z16.12 Extended spectrum beta lactamase (ESBL) resistance; B96.1 Klebsiella pneumoniae [K. pneumoniae] as the cause of diseases classified elsewhere; M19.90 Unspecified osteoarthritis, unspecified site; M86.672 Other chronic osteomyelitis, left ankle and foot; M86.671 Other chronic osteomyelitis, right ankle and foot; L98.429 Non-pressure chronic ulcer of back with unspecified severity; M94.0 Chondrocostal junction syndrome [Tietze]; N31.9 Neuromuscular dysfunction of bladder, unspecified; Z22.322 Carrier or suspected carrier of Methicillin resistant Staphylococcus aureus; Z91.19 Patient's noncompliance with other medical treatment and regimen; Z93.3 Colostomy status; Z99.3 Dependence on wheelchair; Z68.28 Body mass index [BMI] 28.0-28.9, adult; Z88.5 Allergy status to narcotic agent; Z79.1 Long term (current) use of non-steroidal anti-inflammatories (NSAID); Z79.899 Other long term (current) drug therapy; Z71.6 Tobacco abuse counseling
CPT/HCPCS: 36415; 36430; 36569; 37191; 71045; 73630; 74018; 76937; 77001; 78580; 80048; 80202; 80305; 82270; 82607; 82728; 82746; 83540; 83550; 83605; 83735; 83880; 84100; 84134; 84145; 84443; 84484; 85014; 85018; 85027; 85049; 85379; 85384; 85651; 86140; 86850; 86900; 86920; 87070; 87075; 87077; 87186; 87389; 93005; 93306; 93970; 96361; 96365; 96366; 96375; 97110; 97162; 97166; 99285; A6261; C1725; C1769; C1880; C1893; J0696; J1642; J1644; J1885; J1956; J2020; J2185; J2543; J3370; J3475; J3490; J7030; J7040; J7050; J7060; P9016; Q0163; Q9967; A4315

== ENCOUNTER 2023-10-16 21:15 | Emergency (ER) | payer MEDICAID ==
[~2023-10-16] VITALS: Ht 175.3 cm; Wt 81.0 kg
[~2023-10-16 21:15] MED LIST changes: +ERTA1VIA3 IJ; +OXYC-582 PO; -OXYC30TA89 PO
[2023-10-16 21:26] VITALS: O2SAT 99
[2023-10-16] MEDS ORDERED: KETOROLAC 30MG/ML VIAL IV STA (23:18)
[2023-10-16] MEDS ORDERED: ONDANSETRON HCL 4MG/2ML INJ IV STA (23:18)
[2023-10-17 00:11] LABS: BASOPHILS % 0.5 % (0.0-2.0); DIFFERENTIAL COMMENT 0; EOSINOPHILS % 2.2 % (0.0-5.0); HEMATOCRIT. 34.5 % (42.0-52.0); HEMOGLOBIN. 11.1 g/dL (14.0-18.0); LYMPHOCYTES % 32.5 % (20.0-50.0); MEAN CORPUSCULAR HEMOGLOBIN 25.5 pg (28.0-32.0); MEAN CORPUSCULAR HGB CONC 32.1 g/dL (31.0-37.0); MEAN CORPUSCULAR VOLUME 79.3 fL (80.0-94.0); MEAN PLATELET VOLUME 8.2 fl (7.4-10.4); NEUTROPHILS % 59.8 % (40.0-76.0); PLATELET 438 x1000/uL (130-400); RED BLOOD CELL COUNT 4.35 mill/uL (4.7-6.1); RED CELL DISTRIBUTION WIDTH 20.6 % (11.6-14.6); WHITE BLOOD COUNT 9.3 x1000/uL (4.5-11.0)
[2023-10-17 00:30] LABS: ALANINE AMINOTRANSFERASE < 7 IU/L (10-49); ALBUMIN 3.5 g/dL (3.2-4.8); ASPARTATE AMINOTRANSFERASE 13 IU/L (<34); BILIRUBIN TOTAL 0.2 mg/dL (0.1-1.0); CALCIUM 8.8 mg/dL (8.7-10.4); CARBON DIOXIDE 27 mEq/L (21-32); CHLORIDE 106 mEq/L (98-107); CREATININE 0.7 mg/dL (0.6-1.3); GLUCOSE 119 mg/dL (70-105); POTASSIUM 4.1 mEq/L (3.5-5.1); SODIUM 137 mEq/L (136-145); UREA NITROGEN BLOOD 16 mg/dL (9-23)
[2023-10-17 00:40] LABS: PROTEIN TOTAL 9.5 g/dL (6.0-8.3)
[2023-10-17 02:43] LABS: CLARITY URINE TURBID (CLEAR); COLOR URINE ORANGE (YELLOW); GLUCOSE URINE NEGATIVE (NEGATIVE); KETONES URINE NEGATIVE (NEGATIVE); LEUKOCYTE ESTERASE URINE 3+ (NEGATIVE); NITRITE URINE NEGATIVE (NEGATIVE); OCCULT BLOOD URINE 3+ (NEGATIVE); PH URINE 8.5 (4.5-8.0); PROTEIN URINE 2+ (NEGATIVE); SPECIFIC GRAVITY URINE 1.014 (1.005-1.030); UROBILINOGEN URINE 0.2 E.U./dL (0.2-1.0)
[2023-10-17 04:11] LABS: BACTERIA URINE 3+; SQUAMOUS EPITHELIAL CELL URINE 1+ /lpf (RARE/1+); WBC URINE TNTC /hpf (0-2)
[2023-10-17] MEDS ORDERED: HYDR-4001 MT (04:38)
[2023-10-17] MEDS ORDERED: CEPH500C2 MT (04:38)
[2023-10-17] MEDS ORDERED: ONDANSETRON HCL 4MG/2ML INJ IV NR (10:00)
[2023-10-17] MEDS ORDERED: KETOROLAC 15MG/ML VIAL IV NR (10:00)
[2023-10-17 10:18] VITALS: BP 138/72; PULSE 85; RESP 18; TEMP 98.1
== END 2023-10-17 10:20 | disposition home or self-care (01) ==
LOC: ER 21:15
DX: T83.018A Breakdown (mechanical) of other urinary catheter, initial encounter (principal); N39.0 Urinary tract infection, site not specified; G82.20 Paraplegia, unspecified; I10 Essential (primary) hypertension
CPT/HCPCS: 80053; 83605; 83690; 85025; 87077; 36415; 99285; 81003; 87086; 87186; 74176; 96374; J1885; J2405; Z7610